=== PATIENT | female | born 1940 | race Caucasian/White ===

== ENCOUNTER 2017-03-07 10:40 | Inpatient (IN) ==
[2017-03-07] MEDS ORDERED: Sodium Chloride 0.9% 1,000 ML PRIMARY IV ONE (11:05)
[2017-03-07] MEDS ORDERED: NORMAL SALINE 10 ML SYRINGE FLUSH IVP PRN ×2 (11:05→16:05)
[2017-03-07] MEDS ORDERED: LORazepam 2 MG/1 ML VIAL IVP ONE (11:12)
[2017-03-07 11:14] LABS: BASOPHILS # (AUTO) 0.03 10*3/UL; BASOPHILS % (AUTO) 0.2 % (0-1); EOSINOPHILS # (AUTO) 0 10*3/UL; EOSINOPHILS % (AUTO) 0 % (0-8); Hematocrit [HCT] 32.9 % (37.0-47.0); Hemoglobin [HGB] 10.6 g/dL (12.0-16.0); MEAN CORPUSCULAR HEMOGLOBIN 29.4 PG (27-31); MEAN CORPUSCULAR HGB CONC 32.2 g/dL (33-37); MEAN CORPUSCULAR VOLUME 91.4 FL (81-99); MONOCYTES # (AUTO) 1.05 10*3/UL (0.3-0.8); MONOCYTES % (AUTO) 7.6 % (5-15); NEUTROPHILS # (AUTO) 12.07 10*3/UL; NEUTROPHILS % (AUTO) 87.5 % (50-80)
[2017-03-07 11:21] LABS: BLOOD UREA NITROGEN 19 mg/dL (7-22); BUN/CREATININE RATIO 31.66 (6-20); SERUM ALBUMIN 4.1 g/dL (3.5-4.8)
--- NOTE | 2017-03-07 11:33 | EKG ---
[address] [address] Measurements Intervals [place] Rate: 87 P: 63 FL: 150 QRS: 54 QRSD: 74 T: 55 QT: 342 QTc: 387 Interpretive Statements SINUS RHYTHM NONSPECIFIC T-WAVE ABNORMALITY No previous ECG available for comparison Electronically Signed On 03-08-17 12:29:50 MDT by Robbin Galeano [email or web address]
[2017-03-07 11:36] LABS: PLATELET MORPHOLOGY COMMENT NORMAL MORPHOLOGY (NORM); RBC MORPHOLOGY COMMENT NORMAL MORPHOLOGY (NORM)
[2017-03-07 11:37] LABS: WBC MORPHOLOGY COMMENT SEE COMMENTS (NORM)
[2017-03-07 11:39] LABS: VENOUS PH 7.38 (7.32-7.42)
[2017-03-07] MEDS ORDERED: MORPHINE SULFATE 2 MG/1 ML IVP ONE ×2 (11:49→15:20)
--- NOTE | 2017-03-07 11:59 | DI ---
AP PELVIS and RIGHT HIP, 03/07/2017 11:08 AM: Clinical History: Trauma. Previous Exam: None at this facility. There is no soft tissue abnormality. The bony structures of the pelvis are normal. There is osteoporo sis. 2 views of the right hip show a subcapital fracture of the hip. The visualized portions of the f emoral neck at the site of the fracture show a somewhat smooth contour of the fracture line. This is suggestive this may be a subacute fracture. Readin. Subcapital fracture of the right hip. The smooth contour of the fracture line involving the femor al neck raises the possibility this may be a subacute fracture. 2. The AP pelvis view is unremarkable. There is severe osteoporosis.
[2017-03-07 12:22] LABS: BILIRUBIN,URINE NEGATIVE (NEG); CLARITY,URINE CLEAR (CLEAR); COLOR,URINE YELLOW (Y); GLUCOSE, URINE (UA) 500 mg/dL (NEG); NITRATE,URINE NEGATIVE (NEG); OCCULT BLOOD,URINE NEGATIVE (NEG); PROTEIN,URINE NEGATIVE (NEG); URINE SAMPLE TYPE CATH SPECIMEN
--- NOTE | 2017-03-07 14:53 | PDOC ---
General Adult HPI - General Chief Complaint: Fall Stated Complaint: fall Date Seen by Provider: 03/07/17 Time Seen by Provider: 10:50 Source: POSITIVE: Patient, half-way records, Other (Patient's daughter, Sly Laureano, phone number [phone]) Exam Limitations: POSITIVE: Clinical condition (Patient has advanced Alzheimer' s with chronic confusion and markedly decreased cognitive ability) Nurse's Notes Reviewed & Considered: Yes EMS Report Reviewed & Considered: Verbal - History of Present Illness Initial Comment: The patient is a 76 year old female who is brought by ambulance from the [facility], where the patient is a resident. Patient has advanced Alzheimer's with a markedly decreased cognitive ability and increased confusion. half-way personnel called the ambulance because the patient has "been falling a lot ", especially the last few days. half-way staff found the patient sitting on the floor, complaining of pain to her right hip. Have you received a tetanus shot in the past 10 years?: Unknown Body Location Affected: REPORTS: Lower Extremity (R) (Right hip) Timing: REPORTS: With Activity (Has recently been following) Duration: Unknown (Has reportedly been falling for the last 3 weeks; fell again this morning and would not get up or bear weight on her right hip) Severity: Moderate Quality: REPORTS: "Pain" (Right hip) Context: REPORTS: Recent Trauma (As above), Fall (As above) Modifying Factors: improves with: Movement (Movement of right leg exacerbates right hip pain) Similar Symptoms Previously: No Recent Care Received: REPORTS: Denies Any Prior Injuries Related to Current Complaint?: No - Patient Home Medications Home Medications: Home Medications Haloperidol Lactate Inj [Haldol Inj] 1 mg IM PRN PRN 03/07/17 Levothyroxine Sodium 75 mcg PO DAILY 03/07/17 fentaNYL Patch 12mcg [Duragesic Patch 12mg] 12 mcg TOPICAL Q72HR 03/07/17 - Patient Allergies Allergies/Adverse Reactions: Allergies 3 Allergy/AdvReac Type Severity Reaction Status Date / Time Iodinated Contrast- Oral and Allergy NOT Verified 03/07/17 15:03 IV Dye APPLICABLE shellfish derived Allergy NOT Verified 03/07/17 15:03 APPLICABLE Past Medical History - heen HEENT History: Denies History Cardiovascular History: Denies History Respiratory History: Denies History Gastrointestinal History: Denies History Genitourinary History: Denies History Endocrine History: Hypothyroidism Musculoskeletal History: Other (please comment) Additional Musculoskeletal History: 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 Neurological History: Alzheimer's Blood Disorders: Denies History Psychiatric History: Anxiety Disorders History of Sexually Transmitted Diseases: No Female Reproductive History: Denies History Obstetrical History: Denies History Cancer History: Other (please comment) In Past Year Been Physically Harmed or Verbally Threatened: No History of MDRO: Unknown History of Other Communicable Diseases: No Tobacco Use: Unknown If Ever Smoked In the Past 12 Months, Have Used or Abuse Any Substance: Other (please comment) Previous Surgical History: No Type / Date of Surgery: UNKNOWN Significant Family History: Other (please comment) Additional Family History: UNKNOWN Past Medical History Reviewed: Reviewed - Changes Made (Review of systems obtained from long-term staff and patient's daughter; patient not able to give much past medical history due to her advanced Alzheimer's.) ROS - Limitations ROS Limitations: Clinical Condition (Advanced Alzheimer's), Mental Impairment ( Advanced Alzheimer's), Uncooperative (Advanced Alzheimer; somewhat agitated), Other (please comment) (Review of systems obtained "laterally from the long-term and the patient's daughter; patient not able to give a good review of systems due to her advanced Alzheimer's. She does indicate right hip pain.) Constitution: REPORTS: Denies Symptoms (Right hip pain) Cardiovascular: REPORTS: Denies Cardiac Symptoms Respiratory: REPORTS: Denies Resp Symptoms Neurological: REPORTS: Confusion (Chronically due to Alzheimer's) Gastrointestinal: REPORTS: Denies GI Symptoms Endocrine: REPORTS: Denies Symptoms Musculoskeletal: REPORTS: Joint Pain (Right hip pain), Recent Injury (As above) Genitourinary: REPORTS: Denies Symptoms Eyes: REPORTS: Denies Symptoms ENT: REPORTS: Denies Symptoms Skin: REPORTS: Denies Skin Symptoms Lympathic: REPORTS: Denies Lympathic Symptoms Immunologic: POSITIVE: Denies Symptoms Psychiatric: POSITIVE: Confusion (Chronically due to Alzheimer's) General Adult Exam - General Appearance General Appearance: POSITIVE: Uncooperative (Confused chronically due to Alzheimer's) - HEENT HEENT: POSITIVE: Head Inspection Nml, Eyes Inspection Nml, Ears Inspection Nml, Nose Inspection Nml, Oral/Dental Inspect. Nml, Pharynx Inspect. Nml, PERRL, EOMI - Pupils Pupil Size: 3 mm: Bilateral (PERRL) - Neck Neck: POSITIVE: Normal Inspection, Thyroid Normal - Respiratory Respiratory: POSITIVE: No Respiratory Distress, Breath Sounds Normal, Chest Non- Tender - Cardiovascular Cardiovascular: POSITIVE: Regular Rate & Rhythm, No Murmur, No Gallop, PMI Normal Peripheral Pulses: Radial (R): 2+, Radial (L): 2+, Dorsalis-pedis (R): 2+, Dorsalis-pedis (L): 2+ - Abdomen Abdomen: Soft: (All Quadrants), Normal Bowel Sounds: (All Quadrants), Denies Tenderness: (All Quadrants), No Splenomegaly: (All Quadrants), No Hepatomegaly: (All Quadrants), No Guarding: (All Quadrants), No Rebound: (All Quadrants), No Palpable Pulse: (All Quadrants), No Palpabale Mass: (All Quadrants), No Distention: (All Quadrants), No Rigidity: (All Quadrants) - Back Back: POSITIVE: Normal Inspection - Skin Skin: POSITIVE: Normal Color, Warm, Dry, No Rash - Extremities Extremity: Non-Tender: (RUE), (LUE), (LLE), Normal ROM: (RUE), (LUE), (LLE), Normal Inspection: (RUE), (LUE), (LLE), Pelvis Stable: (All Extremities), Normal Tendon Exam: (All Extremities), Tender: (RLE) Additional Extremities Details: Examination of extremities shows pain on palpation about the left hip. Patient prefers to keep her left hip in slight flexion supported by a pillow underneath her knee, which is her position of comfort. No gross deformities appreciated. No vascular deficits appreciated. 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 Normal As Tested, Motor Normal, Disoriented To Person, Disoriented To Place, Disoriented To Time, Cognition Abnormality Images - Complete Complete: 1 - Pain on palpation 2 - Pain on palpation General Adult Progress - Results Reviewed by me Xrays/CTs/US Reviewed by me: Yes Discussed with Radiologist: Yes Radiology Findings: X-ray of right hip shows a subacute subcapital fracture of the right hip CBC and BMP: 03/07/17 11:05 03/07/17 11:31 EKG Interpreted/Reviewed By Me:: Yes (normal) EKG Interpretation:: POSITIVE: Normal Sinus Rhythm, Normal Rate, Normal Intervals, Normal [place], Normal QRS, Normal ST/T - Patient's Progress Pain Medication Addressed: POSITIVE: Yes (Patient given 2 mg of morphine sulfate 4 pain IV and 1 mg Ativan for agitation IV) School/Work Release Addressed: POSITIVE: Not Applicable Re-Examine Time: 12:15 Re-Examine Comment: Patient's daughter, Ashley Mullen, and long-term staff contacted. Both states that the patient is a full CODE STATUS. Diagnosis discussed with the daughter and they wished to proceed with operative repair for fractured hip. Daughter,Ashley Mullen lives in [facility] and her phone number is [phone]. Status: POSITIVE: Unchanged, Re-Examined Antibiotics Given: No - Consult Consult (If Yes, Name of Consulting MD & Time Called): Yes (Dr. Yang, orthopedics and Dr. Aguilera, hospitalist, [facility]) Consulting MD will see pt:: POSITIVE: [facility] Admit Counseled: POSITIVE: Family, RE: Lab Results, RE: Radiology Results, RE: DX, RE : Need for F/U Patient Care Time - Estimated PCT Patient Care Time (In Minutes): 65 Vital Signs - Recent Vital Signs Vital Signs: Vital Signs (Last 8 hours) Temp Pulse Resp BP Pulse Ox 03/07/17 10:40 96.5 F L 93 20 132/86 88 - VS Reviewed Vital Signs Reviewed: Yes Discharge Clinical Impression: Hip fracture, right, Diabetes mellitus, Alzheimer disease Discharge Disposition: Admit to Inpatient Condition: Fair Date Decision to Admit to Inpatient: 03/07/17 Time Decision to Admit to Inpatient: 12:00
[2017-03-07] MEDS ORDERED: LIDOCAINE W/ SODIUM BICARB 0.5 ML SYR SUBD PRN (16:05)
[2017-03-07] MEDS ORDERED: ONDANSETRON 4 MG/2 ML VIAL IVP PRN (16:16)
--- NOTE | 2017-03-07 16:19 | PDOC ---
HPI - History of Present Illness Date and Time of Service: 03/07/2017 17 p.m. Chief Complaint: Patient fell in the intermediate. The intermediate staff found the patient sitting on the floor complaining from pain to the right hip History of Present Illness: This is a 76 years old female with medical history significant for history of advanced dementia she is a resident of the memory unit at [facility], history of hypothyroidism who apparently been falling at the intermediate and today the nursing staff found the patient sitting on the floor complaining from pain in the right hip so she was sent to the ER. Evaluation in the ER revealed Subcapital fracture of the right hip. smooth contour of the fracture line involving the femoral neck raises the possibility this may be a subacute fracture. Dr. Yang was consulted and he suggested admission to the hospital to the hospitalist service and he is planning to do surgery tomorrow. Patient was complaining from pain apparently she was agitated in the ER so she was given morphine and Ativan so by the time the patient came into the word she was sedated and no meaningful information can be obtained from her. She seems comfortable though. History is obtained from reviewing the medical records. Dr. Rosario the ER physician already informed the patient's daughter of this admission. Past Medical History Medical History: 1. Alzheimer dementia. 2. Hypertension on no medications. 3. Hypothyroidism Surgical History: Tonsillectomy Pertinent Family History: Unknown Past Social History: Review of the notes shows that she was a smoker, rarely drinks, no known drug usage. She lives at Memory support units of [facility] Tobacco Use: Never Smoker In the Past 12 Months, Have Used or Abuse Any of the Following Substance: Other (please comment) (No known drug usage) Alcohol Use: Rarely Medication / Allergies Home Medications: Home Medications Medication Instructions Recorded Confirmed Type Haloperidol Lactate Inj [Haldol 1 mg IM PRN PRN 03/07/17 03/07/17 History Inj] Levothyroxine Sodium 75 mcg PO DAILY 03/07/17 03/07/17 History fentaNYL Patch 12mcg [Duragesic 12 mcg TOPICAL Q72HR 03/07/17 03/07/17 History Patch 12mg] Allergies/Adverse Reactions: Allergies 3 Allergy/AdvReac Type Severity Reaction Status Date / Time Iodinated Contrast- Oral and Allergy NOT Verified 03/07/17 18:31 IV Dye APPLICABLE shellfish derived Allergy NOT Verified 03/07/17 18:31 APPLICABLE Review of Systems - Review of Systems ROS Unobtainable: Due to Mental Status Exam - Vitals Vital Signs: Vital Signs Temperature 96.1 F Temperature Source Temporal Artery Scan Pulse Rate 90 Respiratory Rate 16 Blood Pressure 170/92 Pulse Ox 97 Oxygen Flow Rate 2 Oxygen Delivery Method Nasal Cannula Height 4 ft 11 in Weight 96 lb 9.6 oz - General General Appearance: No Acute Distress, Thin Additional General Exam Details: sedated - Head Head Exam: Normal Inspection - Eye Eye Exam: POSITIVE: Normal Appearance - ENT ENT Exam: POSITIVE: Normal Exam - Neck Neck Exam: Normal Inspection - Respiratory Respiratory Exam: POSITIVE: Clear to Auscultation - Bilaterally - Cardiovascular Cardiovascular Exam: POSITIVE: RRR - GI/Abdominal GI/Abdominal Exam: POSITIVE: Normal Bowel Sounds, Non Tender, Non Distended, Soft - Rectal Rectal Exam: POSITIVE: Deferred - External Exam: POSITIVE: Deferred - Extremities Additional Extremities Exam Details: Patient is sedated, she withdraws in response to stimuli - Neurological Additional Neurological Exam Details: Sedated withdraw in response to stimuli moves upper limbs freely Results - Labs CBC and BMP: 03/07/17 11:05 03/07/17 11:31 - EKG Data -: EKG Interpreted by Me Rate: Normal EKG Shows Normal: Sinus Rhythm - EKG Data Additional EKG Details: None specific ST changes - Imaging Status: Report Reviewed by Me (Subcapital fracture of the right hip. The smooth contour of the fracture line involving the femoral neck raises the possibility this may be a subacute fracture.) Assessment and Plan - Patient Problems (1) Hip fracture, right Current Visit: Yes Status: Acute Comment: Patient will be put nothing by mouth after midnight. Will give her some fluid after that. Her EKG does not show significant EKG changes. I think she can proceed with surgery. Her only risk factor seems to be her age. on reviewing the medical records she does not have history of DM, no heart failure and no ischemic heart disease or CVA and creatinine is normal so I think her revised cardiac risk index risk factors put her at low rate of , non fatal IA and non fatal cardiac arrest. The chest x ray per report shows Patchy bilateral reticulonodular opacities with slightly nodular focal opacification in the lateral right mid lung. Correlate clinically. for inflammatory/ infectious process. its unclear if this is acute or chronic she had blood culture taken in ER will give a dose of rocephin and F/U clinically Code(s): S72.001A - Fracture of unspecified part of neck of right femur, initial encounter for closed fracture (2) Alzheimer disease Current Visit: Yes Status: Acute Comment: She is on Haldol IM as needed. The [facility]. Will write for when necessary in case she is agitated. Code(s): G30.9 - Alzheimer's disease, unspecified (3) Hypothyroidism Current Visit: Yes Status: Acute Comment: Continue previous medication. I don't see it previous TSH in the system will add on to the lab. Code(s): E03.9 - Hypothyroidism, unspecified (4) Hypertension Current Visit: Yes Status: Acute Comment: apparently she has a history of hypertension but she is on no medications will watch. Code(s): I10 - Essential (primary) hypertension
[2017-03-07] MEDS: MORPHINE SULFATE 2 MG/1 ML IVP PRN ×3 (16:52→22:21)
--- NOTE | 2017-03-07 18:20 | DI ---
EXAM: XR Chest, 1 View CLINICAL HISTORY: Preoperative evaluation. Physician Notes: Tech Comments: TECHNIQUE: Frontal view of the chest. COMPARISON: No relevant prior studies available. FINDINGS: Lungs: Patchy bilateral reticulonodular opacities with slightly nodular focal opacification in the lateral right mid lung. Rounded opacity measuring 17 mm in the right perihilar region. Pleural space: Unremarkable. No pneumothorax. Heart: Unremarkable. Mediastinum: Prominent mediastinal silhouette, may be related to technique or tortuous aorta. Bones/joints: Unremarkable. IMPRESSION: 1. Patchy bilateral reticulonodular opacities with slightly nodular focal opacification in the lateral right mid lung. Correlate clinically for inflammatory/infectious process. Comparison with available priors may be helpful to assess for chronicity. 2. Rounded opacity measuring 17 mm in the right perihilar region, possible lung mass or adenopathy not excluded.. 3. Prominent mediastinal silhouette, may be related to technique or tortuous aorta.
[2017-03-07] MEDS ORDERED: cefTRIAXone Inj 2 GM in Sodium Chloride 0.9% 100 ML IV ONE (18:58)
[2017-03-08] MEDS: Sodium Chloride 0.9% 1,000 ML PRIMARY IV SCH (00:08)
[2017-03-08] MEDS: MORPHINE SULFATE 2 MG/1 ML IVP PRN ×8 (01:54→22:17)
[2017-03-08] MEDS: HALOPERIDOL LACTATE 5 MG/1 ML AMPULE IVP PRN (02:49)
[2017-03-08 05:17] LABS: BASOPHILS # (AUTO) 0.01 10*3/UL; BASOPHILS % (AUTO) 0.1 % (0-1); EOSINOPHILS # (AUTO) 0.02 10*3/UL; EOSINOPHILS % (AUTO) 0.2 % (0-8); Hematocrit [HCT] 30.5 % (37.0-47.0); LYMPHOCYTES # (AUTO) 0.74 10*3/uL; MEAN CORPUSCULAR HEMOGLOBIN 29.7 PG (27-31); MEAN CORPUSCULAR HGB CONC 32.8 g/dL (33-37); MEAN CORPUSCULAR VOLUME 90.5 FL (81-99); MONOCYTES # (AUTO) 0.87 10*3/UL (0.3-0.8); MONOCYTES % (AUTO) 10.6 % (5-15); NEUTROPHILS # (AUTO) 6.56 10*3/UL; NEUTROPHILS % (AUTO) 79.9 % (50-80); RED BLOOD COUNT 3.37 10^6/uL (4.20-5.40)
[2017-03-08 05:23] LABS: BLOOD UREA NITROGEN 16 mg/dL (7-22)
[2017-03-08 05:31] LABS: PLATELET MORPHOLOGY COMMENT NORMAL MORPHOLOGY (NORM); RBC MORPHOLOGY COMMENT NORMAL MORPHOLOGY (NORM); WBC MORPHOLOGY COMMENT NORMAL MORPHOLOGY (NORM)
[2017-03-08] MEDS: LEVOTHYROXINE 75 MCG TABLET PO SCH (05:31)
[2017-03-08] MEDS ORDERED: Lactated Ringers 1,000 ML PRIMARY IV ONE (05:49)
[2017-03-08] MEDS ORDERED: LIDOCAINE W/ SODIUM BICARB 0.5 ML SYR ONE (07:09)
[2017-03-08] MEDS ORDERED: HETASTARCH 6% IV ONE (07:12)
[2017-03-08] MEDS ORDERED: MIDAZOLAM 5 MG/1 ML ONE (07:12)
[2017-03-08] MEDS ORDERED: KETAMINE 100 MG/1 ML - 5 ML ONE (07:12)
[2017-03-08] MEDS ORDERED: fentaNYL Inj 100 MCG/2 ML VIAL ONE (07:12)
[2017-03-08] MEDS ORDERED: SODIUM CHLORIDE IV ONE (07:12)
[2017-03-08] MEDS ORDERED: Sodium Chloride 0.9% 2,000 ML ONE (07:13)
[2017-03-08] MEDS ORDERED: Sodium Chloride 0.9% 500 ML ONE (07:13)
[2017-03-08] MEDS ORDERED: Gentamicin Inj 40 MG/ML VIAL ONE (07:26)
[2017-03-08] MEDS ORDERED: HEPARIN 10,000 UNIT/1 ML IRRIG ONE ×2 (07:27→13:16)
[2017-03-08] MEDS ORDERED: HEPARIN 10,000 UNIT/1 ML ONE (07:27)
[2017-03-08 07:31] LABS: HEMOGLOBIN A1C 5.86 % (4.2-6.0)
[2017-03-08] MEDS ORDERED: Sodium Chloride 0.9% vial 10 ML ONE ×2 (07:36→07:39)
[2017-03-08] MEDS ORDERED: VECURONIUM BROMIDE 10 MG VIAL ONE (07:36)
[2017-03-08] MEDS ORDERED: PHENYLEPHRINE 10,000 MCG/1 ML VIAL ONE (07:38)
[2017-03-08] MEDS ORDERED: Propofol 200 MG/20 ML VIAL IV ONE (07:43)
[2017-03-08] MEDS ORDERED: FLUMAZENIL 0.1 MG/1 ML - 5 ML IVP ONE (08:35)
--- NOTE | 2017-03-08 09:04 | CRNA.PROGR ---
Anesthesia Note - Progress Notes Anesthesia Progress Note: Scheduled to do Bipolar hip this am. Orthopod, after further review, canceled case due to possibility we would not have correct parts. I gave Fentanyl 50 mcgs and Versed 2 mg as preoperative meds. Gave 0.5 mg Romazicon at 0836 to reverse Versed. Back to floor. Tentatively rescheduled for 03/09/17.
--- NOTE | 2017-03-08 09:24 | PDOC(PROG) ---
Date and Time of Service: 03/08/2017 9:16 AM Interval History: Subjective Patient was supposed to have surgery today she went down however the surgery was canceled because the parts may not be correct for her. Patient downstairs was given fentanyl and also Versed and then was given medication to reverse the effect of Versed. By the time patient came into the floor she is still sleepy she did not answer my questions. Does not appear in distress. Objective : Data - Labs CBC and BMP: 03/08/17 04:20 03/08/17 04:20 Objective : Exam - General Additional General Exam Details: Sedated - Head Head Exam: Normal Inspection - Eye Eye Exam: Normal Appearance - ENT ENT Exam: Normal Exam - Neck Neck Exam: Normal Inspection - Respiratory Respiratory Exam: Clear to Auscultation - Bilaterally - Cardiovascular Cardiovascular Exam: RRR - GI/Abdominal GI/Abdominal Exam: Normal Bowel Sounds, Non Tender, Non Distended, Soft - Rectal Rectal Exam: Deferred - External Exam: Deferred - Extremities Extremities Exam: No Edema Present Additional Extremities Exam Details: Pulses symmetrical and adequate - Neurological Additional Neurological Exam Details: Sedated as a result of the medications - Integumentary Integumentary Exam: Normal Color Assessment and Plan - Patient Problems (1) Hip fracture, right Current Visit: Yes Status: Acute Comment: The surgery was canceled through it is rescheduled for tomorrow. Code(s): S72.001A - Fracture of unspecified part of neck of right femur, initial encounter for closed fracture (2) Alzheimer disease Current Visit: Yes Status: Acute Comment: We did write for Haldol as needed for agitations. Code(s): G30.9 - Alzheimer's disease, unspecified (3) Hypothyroidism Current Visit: Yes Status: Acute Comment: Same med Code(s): E03.9 - Hypothyroidism, unspecified (4) Hypertension Current Visit: Yes Status: Acute Comment: She has a history of hypertension but she is not on blood pressure medication continue to watch her blood pressure Code(s): I10 - Essential (primary) hypertension (5) Hyperglycemia Current Visit: Yes Status: Acute Comment: A1c was 5.8, I think the elevated blood sugar when she came is in part secondary to stress. Maybe she is prediabetic Code(s): R73.9 - Hyperglycemia, unspecified (6) Lung abnormality Current Visit: Yes Status: Acute Comment: There is description on the chest x-ray of possible hilar mass will do a CT. Regarding the fibronodular infiltrate this may be chronic. I think will do a CT of her chest to look into this. Blood cultures still negative I did give her a dose of Rocephin last night we'll see what the CT shows and then will decide if need to give her another dose of antibiotics. Code(s): J98.4 - Other disorders of lung
--- NOTE | 2017-03-08 11:04 | DI ---
CT CHEST SCAN WITHOUT IV CONTRAST, 03/08/2017 9:43 AM : Clinical History: Abnormal chest x-ray. Right hilar mass. Previous Exam: None at this facility. Comparison is made with the AP portable chest x-ray from 017. Scans are performed from the base of the neck to the lower lung bases without IV contrast. Sagittal a nd coronal images using non MIPS and MIPS technique are generated. The base of the neck and thoracic inlet are normal. There are no abnormal axillary, supraclavicular, mediastinal, or hilar nodes. The heart is normal. Significant coronary artery calcifications are pres ent. There is no acute infiltrate, but there is some atelectasis posteriorly. Chronic interstitial di sease is present in both lungs manifested by Shawna A and Shawna B lines. There are no pulmonary nodu les. There is pulmonary arterial hypertension. The "mass" seen in the right hilar region on the AP ch est x-ray from 03/07/2017 is the right pulmonary artery segment going to the right lower lobe before i t bifurcates into branches to the superior segment and the basal segments, and it is prominent becaus e of the pulmonary arterial hypertension. Both adrenal glands and the visualized portions of the live r, spleen, and pancreas are normal. READIN. There is no acute infiltrate or effusion. There is evidence of chronic interstitial lung disease bilaterally. 2. There is no right hilar mass. The density seen on the portable chest x-ray from 03/07/2017 represe nts a prominent pulmonary artery segment going to the right lower lobe. On the chest x-ray, that vess el is viewed end on simulating a mass. 3. Pulmonary arterial hypertension.
--- NOTE | 2017-03-08 11:52 | ORTHO.PROG ---
Last Taken Vital Signs: Vital Signs - Last Taken Temperature 97.1 F 03/08/17 09:00 Pulse Rate 92 03/08/17 09:00 Respiratory Rate 14 03/08/17 09:00 Blood Pressure 139/72 03/08/17 09:00 Pulse Ox 92 03/08/17 09:00 Subjective: Patient complains of pain in her right hip. Objective: Skin is healthy around right hip. Motor and sensory exam seems to be intact but pain with any motion of the hip shortened and externally rotated. CT scan measured the head on the left hip to be approximately 39 mm on the axial and on the sagittal about 38-1/2. Radiograph of the hip measured about 39.3 mm Laboratory Results 03/07/17 03/07/17 03/08/17 Range/Units 12:14 17:24 04:20 WBC 8.22 (4.8-10.8) 10^3/uL RBC 3.37 L (4.20-5.40) 10^6/uL Hgb 10.0 L (12.0-16.0) g/dL Hct 30.5 L (37.0-47.0) % MCV 90.5 (81-99) FL MCH 29.7 (27-31) PG MCHC 32.8 L (33-37) g/dL RDW Std Deviation 46.9 (39-50) fL RDW Coeff of [place] 14.7 H (11.5-14.5) % Plt Count 330 (140-350) 10*3/uL MPV 9.0 (7.4-12.2) FL Immature Gran % (Auto) 0.2 (0-5) % Neut % (Auto) 79.9 (50-80) % Lymph % (Auto) 9.0 L (10-50) % [place] % (Auto) 10.6 (5-15) % Eos % (Auto) 0.2 (0-8) % Baso % (Auto) 0.1 (0-1) % Immature Gran # (Auto) 0.02 10*3/UL Neut # (Auto) 6.56 10*3/UL Lymph # (Auto) 0.74 10*3/uL [place] # (Auto) 0.87 H (0.3-0.8) 10*3/UL Eos # (Auto) 0.02 10*3/UL Baso # (Auto) 0.01 10*3/UL WBC Morphology Comment Normal morphology (NORM) Plt Morphology Comment Normal morphology (NORM) RBC Morph Comment Normal morphology (NORM) Sodium (135-145) meq/L Potassium (3.8-5.2) meq/L Chloride (98-112) meq/L Carbon Dioxide (23-33) meq/L Anion Gap (5-20) BUN (7-22) mg/dL Creatinine (0.50-1.20) mg/dL BUN/Creatinine Ratio (6-20) Glucose (78-110) mg/dL Mean Blood Glucose mg/dL Hemoglobin A1c (4.2-6.0) % Calculated Osmolality (267-292) mOsm/kg Calcium (8.7-10.7) mg/dL TSH 8.44 H (0.2700-4.2000) uIU/mL Free T4 1.31 (0.93-1.71) ng/dL Ur Collection Type Cath specimen Urine Color Yellow (Y) Urine Clarity Clear (CLEAR) Urine pH 7.0 (5.0-8.5) Ur Specific [place] 1.020 (1.005-1.030) Urine Protein Negative (NEG) mg/dl Urine Glucose (UA) 500 (NEG) mg/dL Urine Ketones Negative (NEG) Urine Occult Blood Negative (NEG) Urine Nitrate Negative (NEG) Urine Bilirubin Negative (NEG) Urine Urobilinogen 1.0 (0.2) EU/dL Ur Leukocyte Esterase Negative (NEG) Ur Culture Indicated? Culture not set Blood Type Antibody Screen 03/08/17 03/08/17 03/08/17 Range/Units 04:20 04:20 07:15 WBC (4.8-10.8) 10^3/uL RBC (4.20-5.40) 10^6/uL Hgb (12.0-16.0) g/dL Hct (37.0-47.0) % MCV (81-99) FL MCH (27-31) PG MCHC (33-37) g/dL RDW Std Deviation (39-50) fL RDW Coeff of [place] (11.5-14.5) % Plt Count (140-350) 10*3/uL MPV (7.4-12.2) FL Immature Gran % (Auto) (0-5) % Neut % (Auto) (50-80) % Lymph % (Auto) (10-50) % [place] % (Auto) (5-15) % Eos % (Auto) (0-8) % Baso % (Auto) (0-1) % Immature Gran # (Auto) 10*3/UL Neut # (Auto) 10*3/UL Lymph # (Auto) 10*3/uL [place] # (Auto) (0.3-0.8) 10*3/UL Eos # (Auto) 10*3/UL Baso # (Auto) 10*3/UL WBC Morphology Comment (NORM) Plt Morphology Comment (NORM) RBC Morph Comment (NORM) Sodium 139 (135-145) meq/L Potassium 3.9 (3.8-5.2) meq/L Chloride 102 (98-112) meq/L Carbon Dioxide 27 (23-33) meq/L Anion Gap 10 (5-20) BUN 16 (7-22) mg/dL Creatinine 0.5 (0.50-1.20) mg/dL BUN/Creatinine Ratio 32.00 H (6-20) Glucose 144 H (78-110) mg/dL Mean Blood Glucose 109.138 mg/dL Hemoglobin A1c 5.86 (4.2-6.0) % Calculated Osmolality 291.0 (267-292) mOsm/kg Calcium 9.1 (8.7-10.7) mg/dL TSH (0.2700-4.2000) uIU/mL Free T4 (0.93-1.71) ng/dL Ur Collection Type Urine Color (Y) Urine Clarity (CLEAR) Urine pH (5.0-8.5) Ur Specific [place] (1.005-1.030) Urine Protein (NEG) mg/dl Urine Glucose (UA) (NEG) mg/dL Urine Ketones (NEG) Urine Occult Blood (NEG) Urine Nitrate (NEG) Urine Bilirubin (NEG) Urine Urobilinogen (0.2) EU/dL Ur Leukocyte Esterase (NEG) Ur Culture Indicated? Blood Type A POSITIVE Antibody Screen Negative Assessment: Alzheimer's disease Right hip fracture Chronic anemia by history Plan: Patient was brought down for potential surgery this morning however x-rays obtained in order to template showed that the smallest bipolar head may not be small enough for her acetabulum. In light of this we elected to postpone the case until we had smaller bipolar head in order to fit her acetabulum potentially and or proceed with total hip replacement in order to obviate need for smaller bipolar head if the smallest was too small. We did template femoral stem and generally felt we will well within safe limits before placement of the femoral stem. We will tentatively postpone this until noon tomorrow. Discussed the case in situation with her son who agrees with the plan. Greater than 60 minutes was spent coordinating patient care with family representatives and landen
--- NOTE | 2017-03-08 11:58 | CONSULT ---
Consult Note - Consult Consult Date: 03/07/17 Reason for Consult: PreOp Consulation : Ortho Requesting Physician: Dr. Rosario Primary Care Provider: NONE NONE - History of Present Illness History of Present Illness: Patient is a 76-year-old female with significant Alzheimer's disease who apparently had sustained 3 falls yesterday and was found down on the floor unable to get up or mobilize. Patient is normal status is frequent ambulation throughout the day with no demonstrable issues of pain and discomfort apparently. Past Medical History Medical History: 1. Alzheimer dementia. 2. Hypertension on no medications. 3. Hypothyroidism Surgical History: Tonsillectomy Pertinent Family History: Unknown Past Social History: Review of the notes shows that she was a smoker, rarely drinks, no known drug usage. She lives at [facility] support units of [facility] Tobacco Use: Never Smoker In the Past 12 Months, Have Used or Abuse Any of the Following Substance: Other (please comment) (No known drug usage) Alcohol Use: Rarely Medication / Allergies Home Medications: Home Medications Medication Instructions Recorded Confirmed Type Haloperidol Lactate Inj [Haldol 1 mg IM PRN PRN 03/07/17 03/07/17 History Inj] Levothyroxine Sodium 75 mcg PO DAILY 03/07/17 03/07/17 History fentaNYL Patch 12mcg [Duragesic 12 mcg TOPICAL Q72HR 03/07/17 03/07/17 History Patch 12mg] Allergies/Adverse Reactions: Allergies 3 Allergy/AdvReac Type Severity Reaction Status Date / Time Iodinated Contrast- Oral and Allergy NOT Verified 03/07/17 18:31 IV Dye APPLICABLE shellfish derived Allergy NOT Verified 03/07/17 18:31 APPLICABLE Exam - - Exam: Examination shows that the patient generally appears to be relatively healthy in the sense of no marked atrophy to her lower extremities a muscle she does have shortening and external rotation of the right femur she does move the toes with stimulation as well as the ankle she has good motion of the left lower extremities and the upper extremities. Patient does not very conversant does not appear to be oriented to time place or situation. She does complain of pain with a motion of the leg. Generally she appears to have good pulses and brisk refill. Radiographs show a right femoral neck fracture of the some smoothing of the neck of the femur consistent with possibly subacute nature as well as changes to the head. Laboratory Results 09/03/07/17 03/08/17 Range/Units 12:14 17:24 04:20 WBC 8.22 (4.8-10.8) 10^3/uL RBC 3.37 L (4.20-5.40) 10^6/uL Hgb 10.0 L (12.0-16.0) g/dL Hct 30.5 L (37.0-47.0) % MCV 90.5 (81-99) FL MCH 29.7 (27-31) PG MCHC 32.8 L (33-37) g/dL RDW Std Deviation 46.9 (39-50) fL RDW Coeff of Carl[place] 14.7 H (11.5-14.5) % Plt Count 330 (140-350) 10*3/uL MPV 9.0 (7.4-12.2) FL Immature Gran % (Auto) 0.2 (0-5) % Neut % (Auto) 79.9 (50-80) % Lymph % (Auto) 9.0 L (10-50) % [place] % (Auto) 10.6 (5-15) % Eos % (Auto) 0.2 (0-8) % Baso % (Auto) 0.1 (0-1) % Immature Gran # (Auto) 0.02 10*3/UL Neut # (Auto) 6.56 10*3/UL Lymph # (Auto) 0.74 10*3/uL [place] # (Auto) 0.87 H (0.3-0.8) 10*3/UL Eos # (Auto) 0.02 10*3/UL Baso # (Auto) 0.01 10*3/UL WBC Morphology Comment Normal morphology (NORM) Plt Morphology Comment Normal morphology (NORM) RBC Morph Comment Normal morphology (NORM) Sodium (135-145) meq/L Potassium (3.8-5.2) meq/L Chloride (98-112) meq/L Carbon Dioxide (23-33) meq/L Anion Gap (5-20) BUN (7-22) mg/dL Creatinine (0.50-1.20) mg/dL BUN/Creatinine Ratio (6-20) Glucose (78-110) mg/dL Mean Blood Glucose mg/dL Hemoglobin A1c (4.2-6.0) % Calculated Osmolality (267-292) mOsm/kg Calcium (8.7-10.7) mg/dL TSH 8.44 H (0.2700-4.2000) uIU/mL Free T4 1.31 (0.93-1.71) ng/dL Ur Collection Type Cath specimen Urine Color Yellow (Y) Urine Clarity Clear (CLEAR) Urine pH 7.0 (5.0-8.5) Ur Specific [place] 1.020 (1.005-1.030) Urine Protein Negative (NEG) mg/dl Urine Glucose (UA) 500 (NEG) mg/dL Urine Ketones Negative (NEG) Urine Occult Blood Negative (NEG) Urine Nitrate Negative (NEG) Urine Bilirubin Negative (NEG) Urine Urobilinogen 1.0 (0.2) EU/dL Ur Leukocyte Esterase Negative (NEG) Ur Culture Indicated? Culture not set Blood Type Antibody Screen 03/08/17 03/08/17 03/08/17 Range/Units 04:20 04:20 07:15 WBC (4.8-10.8) 10^3/uL RBC (4.20-5.40) 10^6/uL Hgb (12.0-16.0) g/dL Hct (37.0-47.0) % MCV (81-99) FL MCH (27-31) PG MCHC (33-37) g/dL RDW Std Deviation (39-50) fL RDW Coeff of Carlota (11.5-14.5) % Plt Count (140-350) 10*3/uL MPV (7.4-12.2) FL Immature Gran % (Auto) (0-5) % Neut % (Auto) (50-80) % Lymph % (Auto) (10-50) % [place] % (Auto) (5-15) % Eos % (Auto) (0-8) % Baso % (Auto) (0-1) % Immature Gran # (Auto) 10*3/UL Neut # (Auto) 10*3/UL Lymph # (Auto) 10*3/uL [place] # (Auto) (0.3-0.8) 10*3/UL Eos # (Auto) 10*3/UL Baso # (Auto) 10*3/UL WBC Morphology Comment (NORM) Plt Morphology Comment (NORM) RBC Morph Comment (NORM) Sodium 139 (135-145) meq/L Potassium 3.9 (3.8-5.2) meq/L Chloride 102 (98-112) meq/L Carbon Dioxide 27 (23-33) meq/L Anion Gap 10 (5-20) BUN 16 (7-22) mg/dL Creatinine 0.5 (0.50-1.20) mg/dL BUN/Creatinine Ratio 32.00 H (6-20) Glucose 144 H (78-110) mg/dL Mean Blood Glucose 109.138 mg/dL Hemoglobin A1c 5.86 (4.2-6.0) % Calculated Osmolality 291.0 (267-292) mOsm/kg Calcium 9.1 (8.7-10.7) mg/dL TSH (0.2700-4.2000) uIU/mL Free T4 (0.93-1.71) ng/dL Ur Collection Type Urine Color (Y) Urine Clarity (CLEAR) Urine pH (5.0-8.5) Ur Specific [place] (1.005-1.030) Urine Protein (NEG) mg/dl Urine Glucose (UA) (NEG) mg/dL Urine Ketones (NEG) Urine Occult Blood (NEG) Urine Nitrate (NEG) Urine Bilirubin (NEG) Urine Urobilinogen (0.2) EU/dL Ur Leukocyte Esterase (NEG) Ur Culture Indicated? Blood Type A POSITIVE Antibody Screen Negative Vital Signs (Last 8 hours) Temp Pulse Resp BP Pulse Ox 03/08/17 09:00 97.1 F 92 14 139/72 92 03/08/17 06:57 97 03/08/17 04:47 98.0 F 98 20 147/72 93 - Vitals Vital Signs: Vital Signs Temperature 97.1 F Temperature Source Temporal Artery Scan Pulse Rate [Pulse Oximeter 92 Left] Pulse Rate 80 Respiratory Rate 14 Blood Pressure [Right Arm] 139/72 Blood Pressure 170/92 Pulse Ox 92 Oxygen Flow Rate 9 Oxygen Delivery Method Mask-Simple Height 4 ft 11 in Weight 44.906 kg Results - Labs CBC and BMP: 03/08/17 04:20 03/08/17 04:20 Assessment and Plan - Assessment / Plan Additional Assessment/Plan Details: Impression: Patient with right hip fracture displaced. Alzheimer's. Chronic anemia Plan: We'll proceed with bipolar fixation for right hip fracture to allow early mobilization and without limitations on weightbearing status. Have discussed the case with the patient's son and daughter who agree with the plan and we will proceed along these lines at the current time. Patient son is power of civil attorney. We will proceed with templated x-rays prior to surgery We discussed the patient's current condition and clinical findings as it pertains to the current situation. Surgical versus nonsurgical options risks and benefits were discussed and reviewed. Options moving forward include but are not limited to continued choice to live with their current condition; evaluate their current condition further with imaging studies and/or diagnostic testing, etc.; treat problem/problems with surgical versus nonsurgical methods. The patient demonstrates a clear understanding of our discussion. All questions were answered. Surgical versus nonsurgical options risks and benefits were discussed and reviewed. The risks include but are not limited to bleeding, infection, neurovascular damage, wound problems, deep vein thromboses, pulmonary embolism, fracture, dislocation, nonunion/malunion, need for further surgery, need for blood transfusion, and loss of life and limb. Certainly any surgical procedure may not improve symptoms and potentially could makes symptoms worse. There are no guarantees implied with the discussion of surgical treatment. All questions are answered and the patient wishes to proceed with surgical treatment.
[2017-03-09] MEDS: HALOPERIDOL LACTATE 5 MG/1 ML AMPULE IVP PRN ×2 (00:36→08:49)
[2017-03-09] MEDS: MORPHINE SULFATE 2 MG/1 ML IVP PRN ×6 (01:25→22:22)
[2017-03-09] MEDS: LEVOTHYROXINE 75 MCG TABLET PO SCH (04:39)
--- NOTE | 2017-03-09 07:43 | PDOC(PROG) ---
Date and Time of Service: 03/09/2017 7:40 AM Interval History: Subjective Patient is resting. She did respond when I ask about her pain she denied pain. She did not answer other questions. She seems to be comfortable Objective : Data - Labs CBC and BMP: 03/08/17 04:20 03/08/17 04:20 Objective : Exam - General General Appearance: No Acute Distress - Head Head Exam: Normal Inspection - Eye Eye Exam: Normal Appearance - Neck Neck Exam: Normal Inspection - Respiratory Respiratory Exam: Clear to Auscultation - Bilaterally - Cardiovascular Cardiovascular Exam: RRR - GI/Abdominal GI/Abdominal Exam: Normal Bowel Sounds, Non Tender, Non Distended, Soft - Rectal Rectal Exam: Deferred - External Exam: Deferred - Extremities Extremities Exam: No Edema Present Additional Extremities Exam Details: Adequate pulses present - Neurological Additional Neurological Exam Details: Sleeping but arousable. - Integumentary Integumentary Exam: Normal Color Assessment and Plan - Patient Problems (1) Hip fracture, right Current Visit: Yes Status: Acute Comment: Patient will have surgery today. Code(s): S72.001A - Fracture of unspecified part of neck of right femur, initial encounter for closed fracture (2) Alzheimer disease Current Visit: Yes Status: Acute Comment: We wrote for Haldol as needed for agitation Code(s): G30.9 - Alzheimer's disease, unspecified (3) Hypothyroidism Current Visit: Yes Status: Acute Comment: Same medications Code(s): E03.9 - Hypothyroidism, unspecified (4) Hypertension Current Visit: Yes Status: Acute Comment: Continue watching her blood pressure Code(s): I10 - Essential (primary) hypertension (5) Hyperglycemia Current Visit: Yes Status: Acute Comment: Looks like prediabetic. The elevated blood sugar that she had initially probably related to stress. Code(s): R73.9 - Hyperglycemia, unspecified (6) Lung abnormality Current Visit: Yes Status: Acute Comment: CT of the chest that she had showed no evidence of mass and showed chronic interstitial changes. we DC'd antibiotics. Code(s): J98.4 - Other disorders of lung (7) Anemia Current Visit: Yes Status: Acute Comment: Probable anemia of chronic disease Code(s): D64.9 - Anemia, unspecified
[2017-03-09] MEDS ORDERED: Lactated Ringers 1,000 ML PRIMARY IV SCH ×2 (08:00→11:00)
[2017-03-09] MEDS: Sodium Chloride 0.9% 1,000 ML PRIMARY IV SCH ×2 (09:47→23:00)
--- NOTE | 2017-03-09 10:18 | DI ---
CT HIP SCAN WITHOUT IV CONTRAST, 03/08/2017 9:19 AM : Clinical History: Right hip fracture. Measurement of the femoral head to calculate the prosthetic fem oral head size. The patient is quite diminutive in size and the measurement is required in order to s pecial order the correct size prosthesis. Previous Exam: None at this facility. Scans are performed from above the acetabulum to the proximal femurs without IV contrast. Sagittal an d coronal images are generated. Scans through the lower pelvis show no masses or abnormal fluid collections. There is no adenopathy. The uterus is atrophic but normal. The patient is developing a fecal impaction. The left hip is normal and the measurement of the diameter of the femoral head in 2 planes is between 38-39 mm. The right hip fracture shows multiple small bone shards at the fracture site with erosive change of t he lateral aspect of the femoral head secondary to the medial margin of the fractured femoral neck. T here is sclerosis at the fracture margins indicating this is a subacute to chronic fracture. The pres ence of sclerosis would suggest a duration of at least several weeks has transpired since the initial fracture had occurred. This probably was a subcapital hip fracture. There is osteoporosis. READIN. The right hip fracture is subacute, probably several weeks old. The presence of osteoporosis and the hip fracture indicates this patient has severe osteoporosis. 2. The left hip is normal. Measurement of the left femoral head diameter these measurements between 38-39 mm.
--- NOTE | 2017-03-09 10:27 | CD ---
[facility] Interpretive Statements [id number]
[2017-03-09] MEDS ORDERED: HEPARIN 10,000 UNIT/1 ML ONE (13:16)
[2017-03-09] MEDS ORDERED: Gentamicin Inj 40 MG/ML VIAL ONE (13:16)
[2017-03-09] MEDS ORDERED: Propofol 200 MG/20 ML VIAL IV ONE (13:46)
[2017-03-09] MEDS ORDERED: fentaNYL Inj 250 MCG/5 ML VIAL ONE (13:46)
[2017-03-09] MEDS ORDERED: LIDOCAINE MPF 2% - 5 ML (20 MG/1 ML) ONE (13:46)
[2017-03-09] MEDS ORDERED: Sodium Chloride 0.9% vial 10 ML ONE ×2 (13:48→15:44)
[2017-03-09] MEDS ORDERED: BUPivacaine Liposome/PF (Exparel) Inj 20ml vial INFIL ONE (13:48)
[2017-03-09] MEDS ORDERED: Bacteriostatic NaCl Inj 30ml Vial ONE (13:49)
[2017-03-09] MEDS ORDERED: Ketorolac Inj 30 MG, Morphine Inj 5 MG, BUPivacaine Inj 0.25% PF 150 MG SPLASH ONE ×3 (14:06)
[2017-03-09] MEDS ORDERED: ceFAZolin Inj 2gm (Premix) 2 GM/50 ML BAG IV ONE (14:09)
[2017-03-09] MEDS ORDERED: KETAMINE 100 MG/1 ML - 5 ML ONE (14:15)
[2017-03-09] MEDS ORDERED: ePHEDrine Inj 50 MG/ML AMP ONE (14:31)
[2017-03-09] MEDS ORDERED: HYDROmorphone 2 MG/1 ML ONE (15:23)
[2017-03-09] MEDS ORDERED: Sodium Chloride 0.9% 500 ML ONE (15:27)
[2017-03-09] MEDS ORDERED: Sodium Chloride 0.9% 3,000 ML ONE (16:14)
[2017-03-09] MEDS ORDERED: Lactated Ringers 1,000 ML PRIMARY IV ONE (16:33)
[2017-03-09] MEDS ORDERED: NORMAL SALINE 10 ML SYRINGE FLUSH IVP PRN ×3 (17:22→19:14)
[2017-03-09] MEDS ORDERED: HYDROmorphone 2 MG/1 ML IVP PRN (17:22)
--- NOTE | 2017-03-09 17:34 | CRNA.PROGR ---
Anesthesia Time - - Start date: 03/09/17 End date: 03/09/17 - Procedure/Recovery Time Anesthesia : Time In: 14:19 Anesthesia : Time Out: 17:18 Anesthesia : Total Time: 179 - Total Anesthesia Time Total Anesthesia Time (minutes): 179 - Other Weight: 44.906 kg Height: 4 ft 11 in Body Mass Index (BMI): 20.0 Physical Status: P3 Anesthesia Type: General Anesthesia : LMA
--- NOTE | 2017-03-09 17:53 | CD ---
[facility] Interpretive Statements [id number]
[2017-03-09] MEDS ORDERED: Nalbuphine Inj 20 MG/ML Ampule ONE (17:55)
[2017-03-09] MEDS: Nalbuphine Inj 20 MG/ML Ampule IVP PRN ×2 (17:55→18:05)
--- NOTE | 2017-03-09 18:02 | DI ---
AP PELVIS AND RIGHT HIP, 03/09/2017 4:44 PM: Clinical History: Status post right hemiarthroplasty. Right hip fracture. Previous Exam: 03/07/2017. An AP pelvis with AP and lateral views of the replaced hip are submitted. The patient is status post right hemiarthroplasty. The prosthetic joint articulates normally. A drain tube is in place. There ma y be a fecal impaction. Readin. Status post right hemiarthroplasty. The prosthetic joint articulates normally. 2. There may be a fecal impaction.
[2017-03-09] MEDS ORDERED: diphenhydrAMINE 25 MG CAPSULE PO PRN (19:14)
[2017-03-09] MEDS ORDERED: Prochlorperazine Tab 10 MG TAB PO PRN (19:14)
[2017-03-09] MEDS ORDERED: MAG HYDROX/AL HYDROX/SIMETH 30 ML SUSP PO PRN (19:14)
[2017-03-09] MEDS ORDERED: CALCIUM CARBONATE 500 MG (TUMS) CHEWABLE TABLET PO PRN (19:14)
[2017-03-09] MEDS ORDERED: Ondansetron ODT Tab 8 MG TAB PO PRN (19:14)
[2017-03-09] MEDS ORDERED: BISACODYL 10 MG SUPPOSITORY RECTAL PRN (19:14)
[2017-03-09] MEDS ORDERED: ONDANSETRON 4 MG/2 ML VIAL IVP PRN (19:14)
[2017-03-09] MEDS ORDERED: BISACODYL 5 MG TABLET PO PRN (19:14)
[2017-03-09] MEDS ORDERED: ACETAMINOPHEN 325 MG TABLET PO PRN (19:14)
[2017-03-09] MEDS ORDERED: ceFAZolin Inj 2gm (Premix) 2 GM/50 ML BAG IV SCH (20:00)
[2017-03-09] MEDS: Lactated Ringers 1,000 ML PRIMARY IV SCH (23:00)
[2017-03-09] MEDS: DOCUSATE 100 MG CAPSULE PO SCH (23:01)
[2017-03-09] MEDS: ceFAZolin Inj 2gm (Premix) 2 GM/50 ML BAG IV SCH (23:18)
[2017-03-10 05:38] LABS: Hematocrit [HCT] 30.2 % (37.0-47.0); Hemoglobin [HGB] 9.9 g/dL (12.0-16.0); MEAN CORPUSCULAR HEMOGLOBIN 28.6 PG (27-31); MEAN CORPUSCULAR HGB CONC 32.8 g/dL (33-37); MEAN CORPUSCULAR VOLUME 87.3 FL (81-99); MEAN PLATELET VOLUME 9.2 FL (7.4-12.2); RED BLOOD COUNT 3.46 10^6/uL (4.20-5.40)
[2017-03-10 05:49] LABS: BLOOD UREA NITROGEN 12 mg/dL (7-22)
[2017-03-10] MEDS: Sodium Chloride 0.9% 1,000 ML PRIMARY IV SCH ×2 (06:10→17:39)
[2017-03-10] MEDS: Lactated Ringers 1,000 ML PRIMARY IV SCH (06:11)
[2017-03-10] MEDS: LEVOTHYROXINE 75 MCG TABLET PO SCH (07:00)
[2017-03-10] MEDS: ceFAZolin Inj 2gm (Premix) 2 GM/50 ML BAG IV SCH (07:14)
[2017-03-10] MEDS: MORPHINE SULFATE 2 MG/1 ML IVP PRN (07:16)
[2017-03-10] MEDS: DOCUSATE 100 MG CAPSULE PO SCH ×2 (09:15→20:42)
[2017-03-10] MEDS: ASPIRIN 325 MG EC TABLET PO SCH ×2 (09:15→20:42)
[2017-03-10] MEDS: HYDROcodone-APAP 5 MG -325 MG TABLET PO PRN ×3 (09:43→17:42)
--- NOTE | 2017-03-10 10:16 | PDOC(PROG) ---
Interval History: No complaints patient has severe dementia which is her baseline at the residential she is grimacing the nurse did give her some pain medication she is unable to articulate anything and this is her baseline as well because of the dementia Objective : Data - Labs CBC and BMP: 03/10/17 04:38 03/10/17 04:38 Objective : Exam - General General Appearance: Cooperative - Respiratory Respiratory Exam: Clear to Auscultation - Bilaterally, Breathing Non Labored - Cardiovascular Cardiovascular Exam: RRR, No Murmur, No Clicks - Extremities Extremities Exam: No Clubbing Present, No Edema Present Assessment and Plan - Patient Problems (1) Alzheimer disease Current Visit: Yes Status: Chronic Code(s): G30.9 - Alzheimer's disease, unspecified (2) Hip fracture, right Current Visit: Yes Status: Acute Comment: Status post surgery continue rehabilitation as per orthopedic surgeon as well as anticoagulation Code(s): S72.001A - Fracture of unspecified part of neck of right femur, initial encounter for closed fracture (3) Hypertension Current Visit: Yes Status: Acute Code(s): I10 - Essential (primary) hypertension
--- NOTE | 2017-03-10 16:41 | ORTHO.PROG ---
Last Taken Vital Signs: Vital Signs - Last Taken Temperature 98.8 F 03/10/17 13:00 Pulse Rate 98 03/10/17 13:00 Respiratory Rate 20 03/10/17 13:00 Blood Pressure 149/75 03/10/17 13:00 Pulse Ox 95 03/10/17 13:00 Subjective: Patient seems to be doing well states she has no pain Objective: Dressings are clean and dry, the drain has very little output maybe 10 mL since last PM this was removed patient sits with both legs internally rotated however can rotate externally to about 20 30 with no problems. Her motor exam generally appears to be intact as well as good pulses brisk refill Laboratory Results 03/10/17 03/10/17 Range/Units 04:38 04:38 WBC 7.17 (4.8-10.8) 10^3/uL RBC 3.46 L (4.20-5.40) 10^6/uL Hgb 9.9 L (12.0-16.0) g/dL Hct 30.2 L (37.0-47.0) % MCV 87.3 (81-99) FL MCH 28.6 (27-31) PG MCHC 32.8 L (33-37) g/dL RDW Std Deviation 52.3 H (39-50) fL RDW Coeff of [place] 16.9 H (11.5-14.5) % Plt Count 249 (140-350) 10*3/uL MPV 9.2 (7.4-12.2) FL Sodium 138 (135-145) meq/L Potassium 3.2 L (3.8-5.2) meq/L Chloride 102 (98-112) meq/L Carbon Dioxide 29 (23-33) meq/L Anion Gap 7 (5-20) BUN 12 (7-22) mg/dL Creatinine 0.5 (0.50-1.20) mg/dL BUN/Creatinine Ratio 24.00 H (6-20) Glucose 120 H (78-110) mg/dL Calculated Osmolality 286.0 (267-292) mOsm/kg Calcium 8.2 L (8.7-10.7) mg/dL Vital Signs (Last 8 hours) Temp Pulse Resp BP Pulse Ox 03/10/17 13:00 98.8 F 98 20 149/75 95 Assessment: Right hemiarthroplasty doing well Plan: Patient doing well and is gotten up with physical therapy will continue with this recheck labs in the morning. Pain control as needed. DVT prophylaxis with aspirin and pneumatics
--- NOTE | 2017-03-10 17:55 | PT.PROG ---
Progress Note Progress Note: S: Elvia was not speaking coherently. O: Elvia was non-responsive to prompts for treatment. Treatment consisted of: max assist x2 supine to sit and sit to stand transfer, ambulation with max assist x2 3ft to hospital chair, max assist x2 transfer from stand to sit. A: Elvia seems to be in a lot of pain, but is not able to coherently express her symptoms. Elvia is able to follow simple prompts during treatment, but is not able to participate fully in treatment and requires max assistance with all activities. P: continue POC.
[2017-03-11] MEDS: MORPHINE SULFATE 2 MG/1 ML IVP PRN ×2 (00:54→22:47)
[2017-03-11] MEDS: Sodium Chloride 0.9% 1,000 ML PRIMARY IV SCH (02:13)
[2017-03-11 04:47] LABS: Hematocrit [HCT] 29.7 % (37.0-47.0); Hemoglobin [HGB] 9.7 g/dL (12.0-16.0); MEAN CORPUSCULAR HEMOGLOBIN 28.4 PG (27-31); MEAN CORPUSCULAR HGB CONC 32.7 g/dL (33-37); MEAN CORPUSCULAR VOLUME 86.8 FL (81-99); MEAN PLATELET VOLUME 9.4 FL (7.4-12.2); RED BLOOD COUNT 3.42 10^6/uL (4.20-5.40)
[2017-03-11 05:02] LABS: BLOOD UREA NITROGEN 10 mg/dL (7-22)
[2017-03-11] MEDS: LEVOTHYROXINE 75 MCG TABLET PO SCH ×2 (05:25→06:14)
--- NOTE | 2017-03-11 06:08 | PDOC(PROG) ---
Objective : Data - Labs CBC and BMP: 03/11/17 04:13 03/11/17 04:13 Assessment and Plan - Patient Problems (1) Alzheimer disease Current Visit: Yes Status: Chronic Comment: no change Code(s): G30.9 - Alzheimer's disease, unspecified (2) Hip fracture, right Current Visit: Yes Status: Acute Comment: cont pt ot defer to ortho Code(s): S72.001A - Fracture of unspecified part of neck of right femur, initial encounter for closed fracture (3) Hypertension Current Visit: Yes Status: Acute Comment: stable Code(s): I10 - Essential (primary) hypertension (4) Hypokalemia Current Visit: Yes Status: Acute Comment: replace Code(s): E87.6 - Hypokalemia (5) Low iron Current Visit: Yes Status: Acute Code(s): E61.1 - Iron deficiency (6) Low vitamin B12 level Current Visit: Yes Status: Acute Code(s): E53.8 - Deficiency of other specified B group vitamins (7) Hypothyroidism Current Visit: Yes Status: Acute Comment: tsh is 8 will increase synthroid Code(s): E03.9 - Hypothyroidism, unspecified
[2017-03-11] MEDS ORDERED: LEVOTHYROXINE 75 MCG TABLET PO ONE (06:16)
[2017-03-11] MEDS ORDERED: Magnesium Sulfate 2gm (Premix) 2 GM/50 ML BAG IV ONE (07:15)
[2017-03-11] MEDS ORDERED: CYANOCOBALAMIN 1000 MCG/1 ML VIAL IM ONE (07:15)
--- NOTE | 2017-03-11 08:45 | PDOC(PROG) ---
Interval History: Patient had an uneventful night no complaints Objective : Data - Labs CBC and BMP: 03/11/17 04:13 03/11/17 04:13 Objective : Exam - General General Appearance: Cooperative - Respiratory Respiratory Exam: Clear to Auscultation - Bilaterally, Breathing Non Labored, Normal To Percussion - Cardiovascular Cardiovascular Exam: RRR, No Murmur, No Clicks, No Gallops - Extremities Extremities Exam: Normal Inspection, No Clubbing Present, No Edema Present - Neurological Neurological Exam: Alert Assessment and Plan - Patient Problems (1) Alzheimer disease Current Visit: Yes Status: Chronic Comment: No change Code(s): G30.9 - Alzheimer's disease, unspecified (2) Hip fracture, right Current Visit: Yes Status: Acute Comment: Deferred to orthopedic surgery for when patient can be transferred back to skilled nursing Code(s): S72.001A - Fracture of unspecified part of neck of right femur, initial encounter for closed fracture (3) Hypertension Current Visit: Yes Status: Acute Comment: Stable at present time Code(s): I10 - Essential (primary) hypertension (4) Hypokalemia Current Visit: Yes Status: Acute Comment: Replace with IV banana bags Code(s): E87.6 - Hypokalemia (5) Low iron Current Visit: Yes Status: Acute Comment: Replace by mouth Code(s): E61.1 - Iron deficiency (6) Low vitamin B12 level Current Visit: Yes Status: Acute Comment: IM injection Code(s): E53.8 - Deficiency of other specified B group vitamins (7) Hypothyroidism Current Visit: Yes Status: Acute Comment: Increased to 88 g TSH is 8.7 Code(s): E03.9 - Hypothyroidism, unspecified
[2017-03-11] MEDS: HYDROcodone-APAP 5 MG -325 MG TABLET PO PRN ×2 (09:09→13:52)
[2017-03-11] MEDS: FOLIC ACID 1 MG TABLET PO SCH (09:12)
[2017-03-11] MEDS: DOCUSATE 100 MG CAPSULE PO SCH ×2 (09:12→21:33)
[2017-03-11] MEDS: ASPIRIN 325 MG EC TABLET PO SCH ×2 (09:12→21:33)
[2017-03-11] MEDS: FERROUS GLUCONATE 324 MG TABLET PO SCH (09:12)
--- NOTE | 2017-03-11 10:24 | PTI REPORT ---
Thank you for the referral of Elvia Quinones. She was seen on 03/10/17 for an inpatient evaluation secondary to a hip fracture. SUBJECTIVE: The patient is a 76-year-old female. Nursing staff informed us that the patient lives in the [facility] and has severe cognitive issues including dementia. Nursing stated the patient had also been given Morphine prior to this therapy session. PAST MEDICAL HISTORY: Past medical history can be found in the patient's medical record. OBJECTIVE FINDINGS: General observations: The patient was found in hospital bed upon the therapist' s arrival? She was neither alert or aware. She was moaning and seemed to respond to verbal cues for therapy, but she was unable to open her eyes when prompted. Bed mobility: The patient was transferred with dependent assist x2 from supine position to sitting edge of bed at which point she began to open her eyes. Transfers: The patient was transferred with dependent assist x2 to recliner chair. The patient was able to grasp an assistive device but was unable to use it. She attempted to follow verbal commands to move her extremities during transfers but she needed assistance to move both upper and lower extremities. Pain: The patient was unable to verbalize the extent of her pain, but was seemingly in pain because she was moaning throughout the entire therapy session. ASSESSMENT: The patient has a poor prognosis secondary to dementia and poor cognition. Problem List: Poor muscle strength Patient is unable to participate in bed mobility or transfers Patient is unable to perform activities of daily living Short-Term Goals: To be met by discharge from inpatient: Patient will have increased muscle strength to fair. Patient will be able to perform bed mobility, transfers, and ADLs with mod assist. Long-Term Goals: To be met following discharge from inpatient: Patient will return to [facility] and begin participation in physical therapy at [facility]. TREATMENT PLAN: Patient will be seen B.I.D during the week and one time per day over the weekend as an inpatient to address the above goals and objectives. INITIAL TREATMENT: Treatment today consisted of the initial evaluation followed by dependent assist transfer x2 from bed to chair. Dictated by: ONDINA Russo Supervised by: GERARDO Baron
[2017-03-11] MEDS: Sodium Chloride 0.9% 1,000 ML with Multivitamin Inj 10 ML, Thiamine Inj 100 MG, Folic A... IV SCH ×5 (11:25)
[2017-03-11] MEDS ORDERED: fentaNYL Inj 100 MCG/2 ML VIAL ONE (13:38)
--- NOTE | 2017-03-11 15:43 | ORTHO.PROG ---
Last Taken Vital Signs: Vital Signs - Last Taken Temperature 97.7 F 03/11/17 13:00 Pulse Rate 80 03/11/17 13:00 Respiratory Rate 18 03/11/17 13:00 Blood Pressure 170/80 03/11/17 13:00 Pulse Ox 93 03/11/17 13:00 Subjective: Patient seems to be doing well Objective: PREVENA dressing drain is in place no evidence of infection. Patient seems to move knees and ankles toes reasonably well. No unusual swelling of the lower extremities. Laboratory Results 03/11/17 03/11/17 03/11/17 Range/Units 04:13 04:13 04:13 WBC 7.79 (4.8-10.8) 10^3/uL RBC 3.42 L (4.20-5.40) 10^6/uL Hgb 9.7 L (12.0-16.0) g/dL Hct 29.7 L (37.0-47.0) % MCV 86.8 (81-99) FL MCH 28.4 (27-31) PG MCHC 32.7 L (33-37) g/dL RDW Std Deviation 49.5 (39-50) fL RDW Coeff of Carlota 15.9 H (11.5-14.5) % Plt Count 243 (140-350) 10*3/uL MPV 9.4 (7.4-12.2) FL Sodium 139 (135-145) meq/L Potassium 2.6 L (3.8-5.2) meq/L Chloride 103 (98-112) meq/L Carbon Dioxide 31 (23-33) meq/L Anion Gap 5 (5-20) BUN 10 (7-22) mg/dL Creatinine 0.4 L (0.50-1.20) mg/dL Estimated GFR Sign [employer] BUN/Creatinine Ratio 25.00 H (6-20) Glucose 146 H (78-110) mg/dL Calculated Osmolality 289.0 (267-292) mOsm/kg Calcium 8.1 L (8.7-10.7) mg/dL Magnesium 1.7 (1.6-2.4) mg/dL Vital Signs (24 hrs) Temp Pulse Resp BP Pulse Ox 03/11/17 13:00 97.7 F 80 18 170/80 93 03/11/17 07:37 97.7 F 73 16 154/76 90 03/11/17 04:45 2 03/11/17 04:12 97.8 F 76 20 146/68 97 03/11/17 01:00 98.0 F 87 20 160/74 91 03/10/17 21:00 98.5 F 93 20 129/67 99 03/10/17 17:00 98.2 F 98 20 158/81 95 Assessment: Right femoral neck fracture Alzheimer's Plan: Patient is seems to be making some very slow progress with therapy all be at the fact that she is unable to follow commands well she seems to be able to understand and has been improving her mobilization. Patient with significant risks with return to long term in regard to drain, infection, etc. we'll continue to follow.
--- NOTE | 2017-03-11 17:27 | PT.PROG ---
Progress Note Progress Note: S: Elvia reports that she is not in pain. She asked why she was in the hospital and stated that she did not want to be here. O: Elvia was transferred with dependent assist x2 from sup to EOB and from sit to stand. Elvia was then transferred from standing to sitting on reclining chair. Elvia was left in recliner chair with bed alarm on and call light within reach. A: Elvia was able to follow verbal instructions for movement and could initiate movement of her UE/LE during transfers, but required assistance to move her extremities during the transfer. Elvia was able to open eyes when prompted. She is showing improvement in her ability to communicate verbaly, where she was unable to do so yesterday. P: Continue POC.
--- NOTE | 2017-03-11 17:29 | PT.PROG ---
Progress Note Progress Note: S: Elvia was unable to speak coherently. O: Elvia was transferred from recliner chair to seated EOB and to supine lying on bed with dep assist x2. Elvia was left in hospital bed with bed alarm on and call light within reach. A: Elvia demonstrated improvement in her ability to move her UE/LE during transfers, but continues to be dependent during transfers. P: Continue POC.
[2017-03-12] MEDS: LEVOTHYROXINE 88 MCG TABLET PO SCH (04:58)
[2017-03-12 05:07] LABS: Hematocrit [HCT] 31.1 % (37.0-47.0); Hemoglobin [HGB] 10.2 g/dL (12.0-16.0); MEAN CORPUSCULAR HEMOGLOBIN 28.3 PG (27-31); MEAN CORPUSCULAR HGB CONC 32.8 g/dL (33-37); MEAN CORPUSCULAR VOLUME 86.1 FL (81-99); MEAN PLATELET VOLUME 9.2 FL (7.4-12.2); RED BLOOD COUNT 3.61 10^6/uL (4.20-5.40)
[2017-03-12 05:16] LABS: BLOOD UREA NITROGEN 9 mg/dL (7-22)
[2017-03-12] MEDS: POTASSIUM CHLORIDE 20 MEQ TAB PO SCH ×3 (08:24→21:41)
[2017-03-12] MEDS: ASPIRIN 325 MG EC TABLET PO SCH ×2 (08:24→21:39)
[2017-03-12] MEDS: FERROUS GLUCONATE 324 MG TABLET PO SCH (08:25)
[2017-03-12] MEDS: FOLIC ACID 1 MG TABLET PO SCH (08:25)
[2017-03-12] MEDS: DOCUSATE 100 MG CAPSULE PO SCH ×2 (08:25→21:39)
--- NOTE | 2017-03-12 11:28 | PDOC(PROG) ---
Interval History: No complaints unable to follow commands this is chronic from Alzheimer's disease Objective : Data - Labs CBC and BMP: 03/12/17 04:40 03/12/17 04:40 Objective : Exam - General General Appearance: Cooperative - Respiratory Respiratory Exam: Clear to Auscultation - Bilaterally, Breathing Non Labored - Cardiovascular Cardiovascular Exam: RRR, No Murmur, No Clicks - Extremities Extremities Exam: No Clubbing Present, No Edema Present, No Cyanosis Present Assessment and Plan - Patient Problems (1) Alzheimer disease Current Visit: Yes Status: Chronic Comment: No changes clinically Code(s): G30.9 - Alzheimer's disease, unspecified (2) Hip fracture, right Current Visit: Yes Status: Acute Comment: Deferred to or throat PTOT Code(s): S72.001A - Fracture of unspecified part of neck of right femur, initial encounter for closed fracture (3) Hypertension Current Visit: Yes Status: Acute Comment: Stable Code(s): I10 - Essential (primary) hypertension (4) Hypokalemia Current Visit: Yes Status: Acute Comment: Continue replacement Code(s): E87.6 - Hypokalemia (5) Low iron Current Visit: Yes Status: Acute Comment: Continue replacement Code(s): E61.1 - Iron deficiency (6) Low vitamin B12 level Current Visit: Yes Status: Acute Comment: Continue replacement Code(s): E53.8 - Deficiency of other specified B group vitamins (7) Hypothyroidism Current Visit: Yes Status: Acute Code(s): E03.9 - Hypothyroidism, unspecified
--- NOTE | 2017-03-12 11:53 | OT.PROG ---
Progress Note Progress Note: S: pt did not verbalize anything this morning. O: pt was seen in her recliner today. She completed hygiene activity while seated with max a to wash face /hands. She was non verbal and was unable to open eyes throughout tx. She did take a big drink of her drink that was delivered by cafeteria. A: pt remains max A with hygiene at this time. P: continue per POC.
--- NOTE | 2017-03-12 11:59 | PT.PROG ---
Progress Note Progress Note: S: Elvia reports that she is not in pain. O: Elvia was transferred from supine to sitting on EOB with dependent assist x2. Elvia was brought to standing position and stood stationary for 5 min before being transferred to recliner chair, all with dependent assist x2. Elvia was left with bed alarm on and call light within reach. A: Elvia's condition has improved since yesterday. Elvia was able to maintain having her eyes open for the duration of treatment and also responded to verbal cues to move her extremities during the transfer. P: Continue POC.
--- NOTE | 2017-03-12 15:09 | OTI REPORT ---
Thank you for the referral of Elvia Quinones. She was seen on 03/11/17 for an occupational therapy inpatient evaluation secondary to a right total hip arthroplasty. SUBJECTIVE: The patient is a 76-year-old female who is on the memory care unit at the [facility]. She is being seen secondary to a right total hip arthroplasty. The patient was a poor historian. She was able to state her first and last name, she did not know where she was, she did not know the date, and she stated "I did not have surgery". PAST MEDICAL HISTORY: Past medical history can be found in the patient's medical record. OBJECTIVE FINDINGS: Bed mobility: The patient was able to come from supine to sit with max assist. Transfers: The patient requires max assist to transfer from sit to stand. Range of motion: The patient was not able to move arms actively when asked to do so; however, with active assistive range of motion she was able to move hands and upper extremities to 90 degrees on the left. On the right she resisted movement. Cognition: The patient was not able to follow most commands. Activities of daily living: Today we assessed the patient's ability to complete hygiene activities. She was able to hold onto washcloth and wash her chin and part of her lip area; she was not able to reach higher than that. She did get a little frustrated with more than one verbal cues at a time. She does require increased time to process through tasks. Strength: Strength was not assessed in the patient's upper extremities as the patient does not follow directives very well. ASSESSMENT: At this time the patient is very cognitively involved. She does follow some directions if it is a basic ADL. The patient did know her name but she did not even think she had surgery. At this point the patient would not be able to learn adaptive equipment for dressing. She does not follow commands for upper extremity range of motion. The only thing that she did follow commands for was hygiene tasks. Occupational Therapy Goals: To be met following discharge from inpatient: Patient will be able to return back to the [facility] and continue with PT there. TREATMENT PLAN: Patient will be seen one time per day during the week and one time per day over the weekend as an inpatient for simple ADL and routine type activities. At this point in time the patient's cognition is very limiting. INITIAL TREATMENT: Treatment today consisted of the initial evaluation activities only. LEED
--- NOTE | 2017-03-12 15:35 | PT.PROG ---
Progress Note Progress Note: S: Elvia is up in chair upon PT arrival. Pt is more alert this afternoon but is confused. Pt states that she does not want to be here but when prompted to work on standing, pt scooted self to edge of chair. O: Tx consisted of: STS with mod A x 2 - pt unable to get all the way up with our first attempt, during second attempt, pt's bilateral feet were blocked as she was sliding and mod A x 2 was provided with tactile cuing to stand straight and tuck hips under. Once standing, pt required max assist to move B hands onto the walker in the correct position. Pt required max cuing and max A x 2 for amb x 10 feet with FWW - pt able to amb forward okay but required max assist with backing up to bed including cuing for sliding feet. Pt performed 2 more STS from EOB with max assist for set up and mod A x 2 with blocking feet. Pt able to stand for 1 minute before requiring seated rest break. Pt required max A x 2 with EOB to supine transfer. Once in bed, alarm was set and call light placed within reach. A: Pt was more alert during this session and when prompted to stand she did make an attempt but continues to require mod-max A x 2 with all transfers and ambulation. Pt has difficulties making turns with walker and backing up due to her poor cognition and weakness. P: Continue per POC.
--- NOTE | 2017-03-12 16:37 | ORTHO.PROG ---
Last Taken Vital Signs: Vital Signs - Last Taken Temperature 97.0 F 03/12/17 13:00 Pulse Rate 83 03/12/17 13:00 Respiratory Rate 18 03/12/17 13:00 Blood Pressure 146/87 03/12/17 13:00 Pulse Ox 96 03/12/17 13:00 Subjective: Patient seems to be doing fine no evidence of marked pain. Objective: Right hip with no marked swelling and no fluctuance. Knee with good mobility of motion as well as foot and ankle. Laboratory Results 03/12/17 03/12/17 Range/Units 04:40 04:40 WBC 7.62 (4.8-10.8) 10^3/uL RBC 3.61 L (4.20-5.40) 10^6/uL Hgb 10.2 L (12.0-16.0) g/dL Hct 31.1 L (37.0-47.0) % MCV 86.1 (81-99) FL MCH 28.3 (27-31) PG MCHC 32.8 L (33-37) g/dL RDW Std Deviation 47.4 (39-50) fL RDW Coeff of Carlota 15.4 H (11.5-14.5) % Plt Count 263 (140-350) 10*3/uL MPV 9.2 (7.4-12.2) FL Sodium 137 (135-145) meq/L Potassium 2.4 L* (3.8-5.2) meq/L Chloride 97 L (98-112) meq/L Carbon Dioxide 34 H (23-33) meq/L Anion Gap 6 (5-20) BUN 9 (7-22) mg/dL Creatinine 0.4 L (0.50-1.20) mg/dL Estimated GFR Manager Sales Support BUN/Creatinine Ratio 22.50 H (6-20) Glucose 141 H (78-110) mg/dL Calculated Osmolality 284.0 (267-292) mOsm/kg Calcium 7.8 L (8.7-10.7) mg/dL Vital Signs (24 hrs) Temp Pulse Resp BP Pulse Ox 03/12/17 13:00 97.0 F 83 18 146/87 96 03/12/17 08:14 97.9 F 74 20 176/84 96 03/12/17 04:58 97.6 F 72 20 166/82 96 03/12/17 04:46 95 03/12/17 00:30 97.6 F 83 22 154/79 95 03/11/17 20:54 96.9 F 80 16 172/89 93 Assessment: Right femoral neck fracture with hemiarthroplasty Plan: Continue with physical therapy and occupational therapy. Keep current dressing in place until suction device stops working then cover incision and meagan with Silverlon dressing. We will remove meagan 12 days after surgery. Follow- up with orthopedics in 2 weeks. Patient to do therapy while at assisted for transfers and ambulation with max assist as needed
--- NOTE | 2017-03-12 16:52 | DI ---
AP VIEW OF THE LEFT HIP, 03/08/2017 7:50 AM: Clinical History: Fracture of the right hip. Because of the small stature of the patient, measurement of the left hip is required to determine the size of the prosthesis needed for the right hip. Previous Exam: None at this facility. An AP view of the left hip is submitted. There is no acute soft tissue, osseous, or joint abnormality . Because of potential for magnification errors, a CT scan of the hip will be performed. There is ost eoporosis. Reading: Normal AP view of the left hip.
[2017-03-12] MEDS: Sodium Chloride 0.9% 1,000 ML with Multivitamin Inj 10 ML, Thiamine Inj 100 MG, Folic A... IV SCH ×5 (17:04)
[2017-03-12] MEDS: HYDROcodone-APAP 5 MG -325 MG TABLET PO PRN (19:28)
[2017-03-13] MEDS: HYDROcodone-APAP 5 MG -325 MG TABLET PO PRN ×5 (02:15→22:49)
[2017-03-13] MEDS: LEVOTHYROXINE 88 MCG TABLET PO SCH (04:45)
[2017-03-13 05:02] LABS: BLOOD UREA NITROGEN 10 mg/dL (7-22); SERUM ALBUMIN 2.6 g/dL (3.5-4.8)
[2017-03-13] MEDS: FOLIC ACID 1 MG TABLET PO SCH (09:57)
[2017-03-13] MEDS: DOCUSATE 100 MG CAPSULE PO SCH ×2 (09:57→21:03)
[2017-03-13] MEDS: POTASSIUM CHLORIDE 20 MEQ TAB PO SCH ×3 (09:57→21:04)
[2017-03-13] MEDS: FERROUS GLUCONATE 324 MG TABLET PO SCH (09:58)
[2017-03-13] MEDS: ASPIRIN 325 MG EC TABLET PO SCH ×2 (09:58→20:54)
[2017-03-13] MEDS ORDERED: Magnesium Sulfate 2gm (Premix) 2 GM/50 ML BAG IV ONE (11:06)
[2017-03-13] MEDS: Sodium Chloride 0.9% 1,000 ML with Multivitamin Inj 10 ML, Thiamine Inj 100 MG, Folic A... IV SCH ×5 (11:06)
--- NOTE | 2017-03-13 11:08 | PDOC(PROG) ---
Interval History: Patient Jeaneth morley with the unfortunately dementia Alzheimer's type unable to follow commands this is chronic basic. Objective : Data - Labs CBC and BMP: 03/12/17 04:40 03/13/17 04:23 Objective : Exam - Head Head Exam: Normal Inspection - Respiratory Respiratory Exam: Clear to Auscultation - Bilaterally, Breathing Non Labored, Normal To Percussion - Cardiovascular Cardiovascular Exam: RRR, No Murmur, No Clicks Assessment and Plan - Patient Problems (1) Alzheimer disease Current Visit: Yes Status: Chronic Comment: Stable no change Code(s): G30.9 - Alzheimer's disease, unspecified (2) Hip fracture, right Current Visit: Yes Status: Acute Comment: Deferred to or so according to Dr. Yang patient can continue doing PT OT at the [facility] Code(s): S72.001A - Fracture of unspecified part of neck of right femur, initial encounter for closed fracture (3) Hypertension Current Visit: Yes Status: Acute Comment: Stable Code(s): I10 - Essential (primary) hypertension (4) Hypokalemia Current Visit: Yes Status: Acute Comment: Continue replacement with IV and by mouth Code(s): E87.6 - Hypokalemia (5) Low iron Current Visit: Yes Status: Acute Comment: Continue replacement Code(s): E61.1 - Iron deficiency (6) Low vitamin B12 level Current Visit: Yes Status: Acute Code(s): E53.8 - Deficiency of other specified B group vitamins (7) Hypothyroidism Current Visit: Yes Status: Acute Code(s): E03.9 - Hypothyroidism, unspecified (8) Hypomagnesemia Current Visit: Yes Status: Acute Comment: Replace 2 mg magnesium is 1.8 and will like to see it above 2 Code(s): E83.42 - Hypomagnesemia
--- NOTE | 2017-03-13 13:47 | PT.PROG ---
Progress Note Progress Note: S: Elvia was speaking incoherently. O: Elvia was transferred from supine to sit and from sit to stand with dependent assist x2. She was then transferred to the recliner chair with dependent assist x1. She was left in recliner chair with bed alarm on and call light within reach. A: Elvia was able to verbalize more than she has in the past several dies. However, much of what she says is difficult to understand. Elvia has decreased righting response when in a seated position. She continues to be able to slightly move her UE/LE during transfers, but still requires dependent assist on all transfers. Elvia would continue to benefit from skilled therapy. P:
--- NOTE | 2017-03-13 17:33 | PT.PROG ---
Progress Note Progress Note: S: Elvia asked if she could have someone to keep her company. She states that she is not in pain. O: Elvia was transferred with dependent assist x1 from chair to hospital bed. Elvia was left in hospital bed with alarm on and call light within reach. A: Elvia is showing improvement in her ability to speak and open her eyes. She continues to need dependent assist with transfers, but can assist with UE and LE. P: Continue POC.
--- NOTE | 2017-03-13 17:46 | OT.PROG ---
Progress Note Progress Note: S: When questioned pt. did not report any pain. O: Pt. seen from 16:00 to 16:15 for occupational therapy related to functional activities. Pt was supine in bed upon arrival and did not open eyes, however would respond to questions. Pt completed hand washing tasks including moving wash cloth from hand to hand with max verbal cues and minimal assistance. Pt. also completed face washing task with max assist and max verbal cues. Following therapy session, pt was left in bed with call light in place. A: Pt. was unable to open her eyes for therapy session today and was only able to complete minimal hygiene tasks due to cognition and alertness. P: Continue POC. TOPHER Roa
[2017-03-13] MEDS: MORPHINE SULFATE 2 MG/1 ML IVP PRN (22:45)
[2017-03-14] MEDS: HYDROcodone-APAP 5 MG -325 MG TABLET PO PRN ×5 (02:18→21:23)
[2017-03-14] MEDS: MORPHINE SULFATE 2 MG/1 ML IVP PRN (02:32)
[2017-03-14] MEDS: LEVOTHYROXINE 88 MCG TABLET PO SCH (04:56)
[2017-03-14 08:02] LABS: BASOPHILS # (AUTO) 0.03 10*3/UL; BASOPHILS % (AUTO) 0.4 % (0-1); EOSINOPHILS # (AUTO) 0.16 10*3/UL; EOSINOPHILS % (AUTO) 2.1 % (0-8); Hematocrit [HCT] 33.6 % (37.0-47.0); Hemoglobin [HGB] 10.9 g/dL (12.0-16.0); LYMPHOCYTES # (AUTO) 1.03 10*3/uL; MEAN CORPUSCULAR HEMOGLOBIN 27.9 PG (27-31); MEAN CORPUSCULAR HGB CONC 32.4 g/dL (33-37); MEAN CORPUSCULAR VOLUME 86.2 FL (81-99); MONOCYTES # (AUTO) 0.71 10*3/UL (0.3-0.8); MONOCYTES % (AUTO) 9.1 % (5-15); NEUTROPHILS # (AUTO) 5.83 10*3/UL; NEUTROPHILS % (AUTO) 74.8 % (50-80)
[2017-03-14 08:16] LABS: PLATELET MORPHOLOGY COMMENT NORMAL MORPHOLOGY (NORM); RBC MORPHOLOGY COMMENT NORMAL MORPHOLOGY (NORM); WBC MORPHOLOGY COMMENT NORMAL MORPHOLOGY (NORM)
[2017-03-14 08:23] LABS: BLOOD UREA NITROGEN 6 mg/dL (7-22); SERUM ALBUMIN 2.9 g/dL (3.5-4.8)
--- NOTE | 2017-03-14 08:31 | PDOC(PROG) ---
Interval History: Amazing improvement this morning she is answering questions and following commands. No pain Objective : Data - Labs CBC and BMP: 03/14/17 07:59 03/14/17 07:59 Objective : Exam - General General Appearance: Cooperative - Respiratory Respiratory Exam: Clear to Auscultation - Bilaterally, Breathing Non Labored - Cardiovascular Cardiovascular Exam: RRR, No Murmur, No Clicks - GI/Abdominal GI/Abdominal Exam: Non Tender, Non Distended, Soft - Extremities Extremities Exam: No Clubbing Present, No Edema Present, No Cyanosis Present Assessment and Plan - Patient Problems (1) Alzheimer disease Current Visit: Yes Status: Chronic Comment: She is having a great day today follows commands and answers questions Code(s): G30.9 - Alzheimer's disease, unspecified (2) Hip fracture, right Current Visit: Yes Status: Acute Comment: Defer to orthopedic surgery most likely patient can be sent back to group home for continued physical therapy Code(s): S72.001A - Fracture of unspecified part of neck of right femur, initial encounter for closed fracture (3) Hypertension Current Visit: Yes Status: Acute Comment: Stable at present time Code(s): I10 - Essential (primary) hypertension (4) Hypokalemia Current Visit: Yes Status: Acute Comment: Continue replacement today was 3.7 great improvement Code(s): E87.6 - Hypokalemia (5) Low iron Current Visit: Yes Status: Acute Comment: Continue replacement Code(s): E61.1 - Iron deficiency (6) Low vitamin B12 level Current Visit: Yes Status: Acute Comment: Continue replacement Code(s): E53.8 - Deficiency of other specified B group vitamins (7) Hypothyroidism Current Visit: Yes Status: Acute Comment: Have increased to 88 mg Code(s): E03.9 - Hypothyroidism, unspecified (8) Hypomagnesemia Current Visit: Yes Status: Acute Comment: Since been replaced it is now 2 Code(s): E83.42 - Hypomagnesemia
[2017-03-14] MEDS: ASPIRIN 325 MG EC TABLET PO SCH ×2 (08:33→21:26)
[2017-03-14] MEDS: FOLIC ACID 1 MG TABLET PO SCH (08:34)
[2017-03-14] MEDS: DOCUSATE 100 MG CAPSULE PO SCH ×2 (08:34→21:25)
[2017-03-14] MEDS: POTASSIUM CHLORIDE 20 MEQ TAB PO SCH ×3 (08:34→21:26)
[2017-03-14] MEDS: FERROUS GLUCONATE 324 MG TABLET PO SCH (08:34)
--- NOTE | 2017-03-14 09:36 | PT.PROG ---
Progress Note Progress Note: S:Pt. states she is scared. She states she doesn't want to be hurt. She does not c/o any pain. O: Treatment consisted of functional activities: bed mobility with min assist x 1 from supine to sit on eob. She then performed transfer from EOB to recliner with min to mod assist x 2 with use of FWW and gait belt. She also performed sit to stands x 5 with use of walker. She was placed in the recliner and OT assisted with hygiene activities. Nursing was notified. A: Pt. is able to perform sit to stand with little assist. She does present slightly confused. She requires verbal and tactile cuing to move her feet while transferring. She was willing to perform activities. She did very well with bed mobility. P: Continue per POC to increase strength and activity tolerance. Shelia Crook, FACULTY RESEARCH ASSISTANT
[2017-03-14] MEDS: Sodium Chloride 0.9% 1,000 ML with Multivitamin Inj 10 ML, Thiamine Inj 100 MG, Folic A... IV SCH ×5 (10:43)
[2017-03-15] MEDS: HALOPERIDOL LACTATE 5 MG/1 ML AMPULE IVP PRN ×2 (00:39→10:40)
[2017-03-15] MEDS: HYDROcodone-APAP 5 MG -325 MG TABLET PO PRN ×3 (01:25→16:43)
[2017-03-15] MEDS: MORPHINE SULFATE 2 MG/1 ML IVP PRN (04:03)
[2017-03-15] MEDS: LEVOTHYROXINE 88 MCG TABLET PO SCH (05:15)
[2017-03-15] MEDS: FOLIC ACID 1 MG TABLET PO SCH (09:35)
[2017-03-15] MEDS: DOCUSATE 100 MG CAPSULE PO SCH ×2 (09:35→20:56)
[2017-03-15] MEDS: ASPIRIN 325 MG EC TABLET PO SCH ×2 (09:35→20:57)
[2017-03-15] MEDS: FERROUS GLUCONATE 324 MG TABLET PO SCH (09:35)
[2017-03-15] MEDS: POTASSIUM CHLORIDE 20 MEQ TAB PO SCH ×3 (09:35→20:58)
[2017-03-15] MEDS: Sodium Chloride 0.9% 1,000 ML with Multivitamin Inj 10 ML, Thiamine Inj 100 MG, Folic A... IV SCH ×5 (12:50)
[2017-03-15] MEDS ORDERED: HALOPERIDOL LACTATE 5 MG/1 ML AMPULE IM PRN (17:56)
[2017-03-15] MEDS ORDERED: ACETAMINOPHEN 325 MG TABLET PO PRN (17:59)
--- NOTE | 2017-03-15 18:05 | PDOC(PROG) ---
Date and Time of Service: 03/15/2017, 1800 Interval History: Patient seen and evaluated earlier today. I could not obtain a history from the patient due to her dementia. When I asked if she was hurting she stated "yes", but could not locate the area she hurt. Otherwise history was completely unobtainable due to dementia. Objective : Data - Labs CBC and BMP: 03/14/17 07:59 03/14/17 07:59 Additional Lab Results: Laboratory Results 03/07/17 03/07/17 03/07/17 Range/Units 11:05 11:26 11:31 WBC 13.81 H (4.8-10.8) 10^3/uL RBC 3.60 L (4.20-5.40) 10^6/uL Hgb 10.6 L (12.0-16.0) g/dL Hct 32.9 L (37.0-47.0) % MCV 91.4 (81-99) FL MCH 29.4 (27-31) PG MCHC 32.2 L (33-37) g/dL RDW Std Deviation 47.2 (39-50) fL RDW Coeff of Carlota 14.8 H (11.5-14.5) % Plt Count 390 H (140-350) 10*3/uL MPV 9.0 (7.4-12.2) FL Immature Gran % (Auto) 0.4 (0-5) % Neut % (Auto) 87.5 H (50-80) % Lymph % (Auto) 4.3 L (10-50) % [place] % (Auto) 7.6 (5-15) % Eos % (Auto) 0 (0-8) % Baso % (Auto) 0.2 (0-1) % Immature Gran # (Auto) 0.06 10*3/UL Neut # (Auto) 12.07 10*3/UL Lymph # (Auto) 0.60 10*3/uL [place] # (Auto) 1.05 H (0.3-0.8) 10*3/UL Eos # (Auto) 0 10*3/UL Baso # (Auto) 0.03 10*3/UL WBC Morphology Comment See comments (NORM) Plt Morphology Comment Normal morphology (NORM) RBC Morph Comment Normal morphology (NORM) VBG pH 7.38 (7.32-7.42) VBG pCO2 41 L (45-55) mmHg VBG HCO3 24 (22-26) mmol/L VBG Base Excess -1 (-2-2) MMOL/L Sodium 137 (135-145) meq/L Potassium 4.0 (3.8-5.2) meq/L Chloride 98 (98-112) meq/L Carbon Dioxide 22 L (23-33) meq/L Anion Gap 17 (5-20) BUN 19 (7-22) mg/dL Creatinine 0.6 (0.50-1.20) mg/dL Estimated GFR BUN/Creatinine Ratio 31.66 H (6-20) Glucose 341 H (78-110) mg/dL Mean Blood Glucose mg/dL Hemoglobin A1c (4.2-6.0) % Calculated Osmolality 298.0 H (267-292) mOsm/kg Lactic Acid 4.3 H (0.70-2.10) MMOL/L Calcium 9.4 (8.7-10.7) mg/dL Magnesium (1.6-2.4) mg/dL Iron (37-170) UG/DL TIBC (265-497) ug/dL % Saturation (14-50) % Ferritin (12.00-336.70) ng/mL Total Bilirubin 0.7 (0.3-1.2) mg/dL AST 35 (8-39) IU/L ALT 37 (9-52) IU/L Alkaline Phosphatase 92 (38-126) IU/L C-Reactive Protein 0.5 (0.0-0.9) mg/dL Total Protein 7.3 (6.1-8.0) g/dL Albumin 4.1 (3.5-4.8) g/dL Globulin 3.2 (2.50-4.10) g/dL Albumin/Globulin Ratio 1.20 L (1.3-2.0) mg/g Vitamin B12 (239-931) pg/mL Serum Folate (2.76-20.0) NG/ML TSH (0.2700-4.2000) uIU/mL Free T4 (0.93-1.71) ng/dL Ur Collection Type Urine Color (Y) Urine Clarity (CLEAR) Urine pH (5.0-8.5) Ur Specific [place] (1.005-1.030) Urine Protein (NEG) mg/dl Urine Glucose (UA) (NEG) mg/dL Urine Ketones (NEG) Urine Occult Blood (NEG) Urine Nitrate (NEG) Urine Bilirubin (NEG) Urine Urobilinogen (0.2) EU/dL Ur Leukocyte Esterase (NEG) Ur Culture Indicated? Blood Type Antibody Screen Crossmatch 03/07/17 03/07/17 03/08/17 Range/Units 12:14 17:24 04:20 WBC 8.22 (4.8-10.8) 10^3/uL RBC 3.37 L (4.20-5.40) 10^6/uL Hgb 10.0 L (12.0-16.0) g/dL Hct 30.5 L (37.0-47.0) % MCV 90.5 (81-99) FL MCH 29.7 (27-31) PG MCHC 32.8 L (33-37) g/dL RDW Std Deviation 46.9 (39-50) fL RDW Coeff of Carlota 14.7 H (11.5-14.5) % Plt Count 330 (140-350) 10*3/uL MPV 9.0 (7.4-12.2) FL Immature Gran % (Auto) 0.2 (0-5) % Neut % (Auto) 79.9 (50-80) % Lymph % (Auto) 9.0 L (10-50) % [place] % (Auto) 10.6 (5-15) % Eos % (Auto) 0.2 (0-8) % Baso % (Auto) 0.1 (0-1) % Immature Gran # (Auto) 0.02 10*3/UL Neut # (Auto) 6.56 10*3/UL Lymph # (Auto) 0.74 10*3/uL [place] # (Auto) 0.87 H (0.3-0.8) 10*3/UL Eos # (Auto) 0.02 10*3/UL Baso # (Auto) 0.01 10*3/UL WBC Morphology Comment Normal morphology (NORM) Plt Morphology Comment Normal morphology (NORM) RBC Morph Comment Normal morphology (NORM) VBG pH (7.32-7.42) VBG pCO2 (45-55) mmHg VBG HCO3 (22-26) mmol/L VBG Base Excess (-2-2) MMOL/L Sodium (135-145) meq/L Potassium (3.8-5.2) meq/L Chloride (98-112) meq/L Carbon Dioxide (23-33) meq/L Anion Gap (5-20) BUN (7-22) mg/dL Creatinine (0.50-1.20) mg/dL Estimated GFR BUN/Creatinine Ratio (6-20) Glucose (78-110) mg/dL Mean Blood Glucose mg/dL Hemoglobin A1c (4.2-6.0) % Calculated Osmolality (267-292) mOsm/kg Lactic Acid (0.70-2.10) MMOL/L Calcium (8.7-10.7) mg/dL Magnesium (1.6-2.4) mg/dL Iron (37-170) UG/DL TIBC (265-497) ug/dL % Saturation (14-50) % Ferritin (12.00-336.70) ng/mL Total Bilirubin (0.3-1.2) mg/dL AST (8-39) IU/L ALT (9-52) IU/L Alkaline Phosphatase (38-126) IU/L C-Reactive Protein (0.0-0.9) mg/dL Total Protein (6.1-8.0) g/dL Albumin (3.5-4.8) g/dL Globulin (2.50-4.10) g/dL Albumin/Globulin Ratio (1.3-2.0) mg/g Vitamin B12 (239-931) pg/mL Serum Folate (2.76-20.0) NG/ML TSH 8.44 H (0.2700-4.2000) uIU/mL Free T4 1.31 (0.93-1.71) ng/dL Ur Collection Type Cath specimen Urine Color Yellow (Y) Urine Clarity Clear (CLEAR) Urine pH 7.0 (5.0-8.5) Ur Specific [place] 1.020 (1.005-1.030) Urine Protein Negative (NEG) mg/dl Urine Glucose (UA) 500 (NEG) mg/dL Urine Ketones Negative (NEG) Urine Occult Blood Negative (NEG) Urine Nitrate Negative (NEG) Urine Bilirubin Negative (NEG) Urine Urobilinogen 1.0 (0.2) EU/dL Ur Leukocyte Esterase Negative (NEG) Ur Culture Indicated? Culture not set Blood Type Antibody Screen Crossmatch 03/08/17 03/08/17 03/08/17 Range/Units 04:20 04:20 07:15 WBC (4.8-10.8) 10^3/uL RBC (4.20-5.40) 10^6/uL Hgb (12.0-16.0) g/dL Hct (37.0-47.0) % MCV (81-99) FL MCH (27-31) PG MCHC (33-37) g/dL RDW Std Deviation (39-50) fL RDW Coeff of Carlota (11.5-14.5) % Plt Count (140-350) 10*3/uL MPV (7.4-12.2) FL Immature Gran % (Auto) (0-5) % Neut % (Auto) (50-80) % Lymph % (Auto) (10-50) % [place] % (Auto) (5-15) % Eos % (Auto) (0-8) % Baso % (Auto) (0-1) % Immature Gran # (Auto) 10*3/UL Neut # (Auto) 10*3/UL Lymph # (Auto) 10*3/uL [place] # (Auto) (0.3-0.8) 10*3/UL Eos # (Auto) 10*3/UL Baso # (Auto) 10*3/UL WBC Morphology Comment (NORM) Plt Morphology Comment (NORM) RBC Morph Comment (NORM) VBG pH (7.32-7.42) VBG pCO2 (45-55) mmHg VBG HCO3 (22-26) mmol/L VBG Base Excess (-2-2) MMOL/L Sodium 139 (135-145) meq/L Potassium 3.9 (3.8-5.2) meq/L Chloride 102 (98-112) meq/L Carbon Dioxide 27 (23-33) meq/L Anion Gap 10 (5-20) BUN 16 (7-22) mg/dL Creatinine 0.5 (0.50-1.20) mg/dL Estimated GFR BUN/Creatinine Ratio 32.00 H (6-20) Glucose 144 H (78-110) mg/dL Mean Blood Glucose 109.138 mg/dL Hemoglobin A1c 5.86 (4.2-6.0) % Calculated Osmolality 291.0 (267-292) mOsm/kg Lactic Acid (0.70-2.10) MMOL/L Calcium 9.1 (8.7-10.7) mg/dL Magnesium (1.6-2.4) mg/dL Iron (37-170) UG/DL TIBC (265-497) ug/dL % Saturation (14-50) % Ferritin (12.00-336.70) ng/mL Total Bilirubin (0.3-1.2) mg/dL AST (8-39) IU/L ALT (9-52) IU/L Alkaline Phosphatase (38-126) IU/L C-Reactive Protein (0.0-0.9) mg/dL Total Protein (6.1-8.0) g/dL Albumin (3.5-4.8) g/dL Globulin (2.50-4.10) g/dL Albumin/Globulin Ratio (1.3-2.0) mg/g Vitamin B12 (239-931) pg/mL Serum Folate (2.76-20.0) NG/ML TSH (0.2700-4.2000) uIU/mL Free T4 (0.93-1.71) ng/dL Ur Collection Type Urine Color (Y) Urine Clarity (CLEAR) Urine pH (5.0-8.5) Ur Specific [place] (1.005-1.030) Urine Protein (NEG) mg/dl Urine Glucose (UA) (NEG) mg/dL Urine Ketones (NEG) Urine Occult Blood (NEG) Urine Nitrate (NEG) Urine Bilirubin (NEG) Urine Urobilinogen (0.2) EU/dL Ur Leukocyte Esterase (NEG) Ur Culture Indicated? Blood Type A POSITIVE Antibody Screen Negative Crossmatch See Detail 03/09/17 03/09/17 03/09/17 Range/Units 04:20 04:20 04:20 WBC (4.8-10.8) 10^3/uL RBC (4.20-5.40) 10^6/uL Hgb (12.0-16.0) g/dL Hct (37.0-47.0) % MCV (81-99) FL MCH (27-31) PG MCHC (33-37) g/dL RDW Std Deviation (39-50) fL RDW Coeff of Carlota (11.5-14.5) % Plt Count (140-350) 10*3/uL MPV (7.4-12.2) FL Immature Gran % (Auto) (0-5) % Neut % (Auto) (50-80) % Lymph % (Auto) (10-50) % [place] % (Auto) (5-15) % Eos % (Auto) (0-8) % Baso % (Auto) (0-1) % Immature Gran # (Auto) 10*3/UL Neut # (Auto) 10*3/UL Lymph # (Auto) 10*3/uL [place] # (Auto) (0.3-0.8) 10*3/UL Eos # (Auto) 10*3/UL Baso # (Auto) 10*3/UL WBC Morphology Comment (NORM) Plt Morphology Comment (NORM) RBC Morph Comment (NORM) VBG pH (7.32-7.42) VBG pCO2 (45-55) mmHg VBG HCO3 (22-26) mmol/L VBG Base Excess (-2-2) MMOL/L Sodium (135-145) meq/L Potassium (3.8-5.2) meq/L Chloride (98-112) meq/L Carbon Dioxide (23-33) meq/L Anion Gap (5-20) BUN (7-22) mg/dL Creatinine (0.50-1.20) mg/dL Estimated GFR BUN/Creatinine Ratio (6-20) Glucose (78-110) mg/dL Mean Blood Glucose mg/dL Hemoglobin A1c (4.2-6.0) % Calculated Osmolality (267-292) mOsm/kg Lactic Acid (0.70-2.10) MMOL/L Calcium (8.7-10.7) mg/dL Magnesium (1.6-2.4) mg/dL Iron 18 L (37-170) UG/DL TIBC 261 L (265-497) ug/dL % Saturation 6.9 L (14-50) % Ferritin 136.00 (12.00-336.70) ng/mL Total Bilirubin (0.3-1.2) mg/dL AST (8-39) IU/L ALT (9-52) IU/L Alkaline Phosphatase (38-126) IU/L C-Reactive Protein (0.0-0.9) mg/dL Total Protein (6.1-8.0) g/dL Albumin (3.5-4.8) g/dL Globulin (2.50-4.10) g/dL Albumin/Globulin Ratio (1.3-2.0) mg/g Vitamin B12 411 (239-931) pg/mL Serum Folate 13.8 (2.76-20.0) NG/ML TSH (0.2700-4.2000) uIU/mL Free T4 (0.93-1.71) ng/dL Ur Collection Type Urine Color (Y) Urine Clarity (CLEAR) Urine pH (5.0-8.5) Ur Specific [place] (1.005-1.030) Urine Protein (NEG) mg/dl Urine Glucose (UA) (NEG) mg/dL Urine Ketones (NEG) Urine Occult Blood (NEG) Urine Nitrate (NEG) Urine Bilirubin (NEG) Urine Urobilinogen (0.2) EU/dL Ur Leukocyte Esterase (NEG) Ur Culture Indicated? Blood Type Antibody Screen Crossmatch 03/10/17 03/10/17 03/11/17 Range/Units 04:38 04:38 04:13 WBC 7.17 7.79 (4.8-10.8) 10^3/uL RBC 3.46 L 3.42 L (4.20-5.40) 10^6/uL Hgb 9.9 L 9.7 L (12.0-16.0) g/dL Hct 30.2 L 29.7 L (37.0-47.0) % MCV 87.3 86.8 (81-99) FL MCH 28.6 28.4 (27-31) PG MCHC 32.8 L 32.7 L (33-37) g/dL RDW Std Deviation 52.3 H 49.5 (39-50) fL RDW Coeff of [place] 16.9 H 15.9 H (11.5-14.5) % Plt Count 249 243 (140-350) 10*3/uL MPV 9.2 9.4 (7.4-12.2) FL Immature Gran % (Auto) (0-5) % Neut % (Auto) (50-80) % Lymph % (Auto) (10-50) % [place] % (Auto) (5-15) % Eos % (Auto) (0-8) % Baso % (Auto) (0-1) % Immature Gran # (Auto) 10*3/UL Neut # (Auto) 10*3/UL Lymph # (Auto) 10*3/uL [place] # (Auto) (0.3-0.8) 10*3/UL Eos # (Auto) 10*3/UL Baso # (Auto) 10*3/UL WBC Morphology Comment (NORM) Plt Morphology Comment (NORM) RBC Morph Comment (NORM) VBG pH (7.32-7.42) VBG pCO2 (45-55) mmHg VBG HCO3 (22-26) mmol/L VBG Base Excess (-2-2) MMOL/L Sodium 138 (135-145) meq/L Potassium 3.2 L (3.8-5.2) meq/L Chloride 102 (98-112) meq/L Carbon Dioxide 29 (23-33) meq/L Anion Gap 7 (5-20) BUN 12 (7-22) mg/dL Creatinine 0.5 (0.50-1.20) mg/dL Estimated GFR BUN/Creatinine Ratio 24.00 H (6-20) Glucose 120 H (78-110) mg/dL Mean Blood Glucose mg/dL Hemoglobin A1c (4.2-6.0) % Calculated Osmolality 286.0 (267-292) mOsm/kg Lactic Acid (0.70-2.10) MMOL/L Calcium 8.2 L (8.7-10.7) mg/dL Magnesium (1.6-2.4) mg/dL Iron (37-170) UG/DL TIBC (265-497) ug/dL % Saturation (14-50) % Ferritin (12.00-336.70) ng/mL Total Bilirubin (0.3-1.2) mg/dL AST (8-39) IU/L ALT (9-52) IU/L Alkaline Phosphatase (38-126) IU/L C-Reactive Protein (0.0-0.9) mg/dL Total Protein (6.1-8.0) g/dL Albumin (3.5-4.8) g/dL Globulin (2.50-4.10) g/dL Albumin/Globulin Ratio (1.3-2.0) mg/g Vitamin B12 (239-931) pg/mL Serum Folate (2.76-20.0) NG/ML TSH (0.2700-4.2000) uIU/mL Free T4 (0.93-1.71) ng/dL Ur Collection Type Urine Color (Y) Urine Clarity (CLEAR) Urine pH (5.0-8.5) Ur Specific [place] (1.005-1.030) Urine Protein (NEG) mg/dl Urine Glucose (UA) (NEG) mg/dL Urine Ketones (NEG) Urine Occult Blood (NEG) Urine Nitrate (NEG) Urine Bilirubin (NEG) Urine Urobilinogen (0.2) EU/dL Ur Leukocyte Esterase (NEG) Ur Culture Indicated? Blood Type Antibody Screen Crossmatch 03/11/17 03/11/17 03/12/17 Range/Units 04:13 04:13 04:40 WBC 7.62 (4.8-10.8) 10^3/uL RBC 3.61 L (4.20-5.40) 10^6/uL Hgb 10.2 L (12.0-16.0) g/dL Hct 31.1 L (37.0-47.0) % MCV 86.1 (81-99) FL MCH 28.3 (27-31) PG MCHC 32.8 L (33-37) g/dL RDW Std Deviation 47.4 (39-50) fL RDW Coeff of [place] 15.4 H (11.5-14.5) % Plt Count 263 (140-350) 10*3/uL MPV 9.2 (7.4-12.2) FL Immature Gran % (Auto) (0-5) % Neut % (Auto) (50-80) % Lymph % (Auto) (10-50) % [place] % (Auto) (5-15) % Eos % (Auto) (0-8) % Baso % (Auto) (0-1) % Immature Gran # (Auto) 10*3/UL Neut # (Auto) 10*3/UL Lymph # (Auto) 10*3/uL [place] # (Auto) (0.3-0.8) 10*3/UL Eos # (Auto) 10*3/UL Baso # (Auto) 10*3/UL WBC Morphology Comment (NORM) Plt Morphology Comment (NORM) RBC Morph Comment (NORM) VBG pH (7.32-7.42) VBG pCO2 (45-55) mmHg VBG HCO3 (22-26) mmol/L VBG Base Excess (-2-2) MMOL/L Sodium 139 (135-145) meq/L Potassium 2.6 L (3.8-5.2) meq/L Chloride 103 (98-112) meq/L Carbon Dioxide 31 (23-33) meq/L Anion Gap 5 (5-20) BUN 10 (7-22) mg/dL Creatinine 0.4 L (0.50-1.20) mg/dL Estimated GFR Brands Editor BUN/Creatinine Ratio 25.00 H (6-20) Glucose 146 H (78-110) mg/dL Mean Blood Glucose mg/dL Hemoglobin A1c (4.2-6.0) % Calculated Osmolality 289.0 (267-292) mOsm/kg Lactic Acid (0.70-2.10) MMOL/L Calcium 8.1 L (8.7-10.7) mg/dL Magnesium 1.7 (1.6-2.4) mg/dL Iron (37-170) UG/DL TIBC (265-497) ug/dL % Saturation (14-50) % Ferritin (12.00-336.70) ng/mL Total Bilirubin (0.3-1.2) mg/dL AST (8-39) IU/L ALT (9-52) IU/L Alkaline Phosphatase (38-126) IU/L C-Reactive Protein (0.0-0.9) mg/dL Total Protein (6.1-8.0) g/dL Albumin (3.5-4.8) g/dL Globulin (2.50-4.10) g/dL Albumin/Globulin Ratio (1.3-2.0) mg/g Vitamin B12 (239-931) pg/mL Serum Folate (2.76-20.0) NG/ML TSH (0.2700-4.2000) uIU/mL Free T4 (0.93-1.71) ng/dL Ur Collection Type Urine Color (Y) Urine Clarity (CLEAR) Urine pH (5.0-8.5) Ur Specific [place] (1.005-1.030) Urine Protein (NEG) mg/dl Urine Glucose (UA) (NEG) mg/dL Urine Ketones (NEG) Urine Occult Blood (NEG) Urine Nitrate (NEG) Urine Bilirubin (NEG) Urine Urobilinogen (0.2) EU/dL Ur Leukocyte Esterase (NEG) Ur Culture Indicated? Blood Type Antibody Screen Crossmatch 03/12/17 03/13/17 03/13/17 Range/Units 04:40 04:23 08:57 WBC (4.8-10.8) 10^3/uL RBC (4.20-5.40) 10^6/uL Hgb (12.0-16.0) g/dL Hct (37.0-47.0) % MCV (81-99) FL MCH (27-31) PG MCHC (33-37) g/dL RDW Std Deviation (39-50) fL RDW Coeff of [place] (11.5-14.5) % Plt Count (140-350) 10*3/uL MPV (7.4-12.2) FL Immature Gran % (Auto) (0-5) % Neut % (Auto) (50-80) % Lymph % (Auto) (10-50) % [place] % (Auto) (5-15) % Eos % (Auto) (0-8) % Baso % (Auto) (0-1) % Immature Gran # (Auto) 10*3/UL Neut # (Auto) 10*3/UL Lymph # (Auto) 10*3/uL [place] # (Auto) (0.3-0.8) 10*3/UL Eos # (Auto) 10*3/UL Baso # (Auto) 10*3/UL WBC Morphology Comment (NORM) Plt Morphology Comment (NORM) RBC Morph Comment (NORM) VBG pH (7.32-7.42) VBG pCO2 (45-55) mmHg VBG HCO3 (22-26) mmol/L VBG Base Excess (-2-2) MMOL/L Sodium 137 141 (135-145) meq/L Potassium 2.4 L* 2.7 L (3.8-5.2) meq/L Chloride 97 L 102 (98-112) meq/L Carbon Dioxide 34 H 31 (23-33) meq/L Anion Gap 6 8 (5-20) BUN 9 10 (7-22) mg/dL Creatinine 0.4 L 0.4 L (0.50-1.20) mg/dL Estimated GFR Brands Editor Br[employer] Editor BUN/Creatinine Ratio 22.50 H 25.00 H (6-20) Glucose 141 H 126 H (78-110) mg/dL Mean Blood Glucose mg/dL Hemoglobin A1c (4.2-6.0) % Calculated Osmolality 284.0 292.0 (267-292) mOsm/kg Lactic Acid (0.70-2.10) MMOL/L Calcium 7.8 L 7.6 L (8.7-10.7) mg/dL Magnesium 1.8 (1.6-2.4) mg/dL Iron (37-170) UG/DL TIBC (265-497) ug/dL % Saturation (14-50) % Ferritin (12.00-336.70) ng/mL Total Bilirubin 0.8 (0.3-1.2) mg/dL AST 39 (8-39) IU/L ALT 40 (9-52) IU/L Alkaline Phosphatase 76 (38-126) IU/L C-Reactive Protein (0.0-0.9) mg/dL Total Protein 5.5 L (6.1-8.0) g/dL Albumin 2.6 L (3.5-4.8) g/dL Globulin 2.9 (2.50-4.10) g/dL Albumin/Globulin Ratio 0.80 L (1.3-2.0) mg/g Vitamin B12 (239-931) pg/mL Serum Folate (2.76-20.0) NG/ML TSH (0.2700-4.2000) uIU/mL Free T4 (0.93-1.71) ng/dL Ur Collection Type Urine Color (Y) Urine Clarity (CLEAR) Urine pH (5.0-8.5) Ur Specific [place] (1.005-1.030) Urine Protein (NEG) mg/dl Urine Glucose (UA) (NEG) mg/dL Urine Ketones (NEG) Urine Occult Blood (NEG) Urine Nitrate (NEG) Urine Bilirubin (NEG) Urine Urobilinogen (0.2) EU/dL Ur Leukocyte Esterase (NEG) Ur Culture Indicated? Blood Type Antibody Screen Crossmatch 03/14/17 03/14/17 Range/Units 07:59 07:59 WBC 7.79 (4.8-10.8) 10^3/uL RBC 3.90 L (4.20-5.40) 10^6/uL Hgb 10.9 L (12.0-16.0) g/dL Hct 33.6 L (37.0-47.0) % MCV 86.2 (81-99) FL MCH 27.9 (27-31) PG MCHC 32.4 L (33-37) g/dL RDW Std Deviation 47.0 (39-50) fL RDW Coeff of [place] 15.1 H (11.5-14.5) % Plt Count 310 (140-350) 10*3/uL MPV 9.0 (7.4-12.2) FL Immature Gran % (Auto) 0.4 (0-5) % Neut % (Auto) 74.8 (50-80) % Lymph % (Auto) 13.2 (10-50) % [place] % (Auto) 9.1 (5-15) % Eos % (Auto) 2.1 (0-8) % Baso % (Auto) 0.4 (0-1) % Immature Gran # (Auto) 0.03 10*3/UL Neut # (Auto) 5.83 10*3/UL Lymph # (Auto) 1.03 10*3/uL [place] # (Auto) 0.71 (0.3-0.8) 10*3/UL Eos # (Auto) 0.16 10*3/UL Baso # (Auto) 0.03 10*3/UL WBC Morphology Comment Normal morphology (NORM) Plt Morphology Comment Normal morphology (NORM) RBC Morph Comment Normal morphology (NORM) VBG pH (7.32-7.42) VBG pCO2 (45-55) mmHg VBG HCO3 (22-26) mmol/L VBG Base Excess (-2-2) MMOL/L Sodium 137 (135-145) meq/L Potassium 3.7 L (3.8-5.2) meq/L Chloride 103 (98-112) meq/L Carbon Dioxide 27 (23-33) meq/L Anion Gap 7 (5-20) BUN 6 L (7-22) mg/dL Creatinine 0.4 L (0.50-1.20) mg/dL Estimated GFR [employer] Editor BUN/Creatinine Ratio 15.00 (6-20) Glucose 125 H (78-110) mg/dL Mean Blood Glucose mg/dL Hemoglobin A1c (4.2-6.0) % Calculated Osmolality 282.0 (267-292) mOsm/kg Lactic Acid (0.70-2.10) MMOL/L Calcium 7.8 L (8.7-10.7) mg/dL Magnesium 2.0 (1.6-2.4) mg/dL Iron (37-170) UG/DL TIBC (265-497) ug/dL % Saturation (14-50) % Ferritin (12.00-336.70) ng/mL Total Bilirubin 0.7 (0.3-1.2) mg/dL AST 53 H (8-39) IU/L ALT 44 (9-52) IU/L Alkaline Phosphatase 83 (38-126) IU/L C-Reactive Protein (0.0-0.9) mg/dL Total Protein 5.9 L (6.1-8.0) g/dL Albumin 2.9 L (3.5-4.8) g/dL Globulin 3.0 (2.50-4.10) g/dL Albumin/Globulin Ratio 0.90 L (1.3-2.0) mg/g Vitamin B12 (239-931) pg/mL Serum Folate (2.76-20.0) NG/ML TSH (0.2700-4.2000) uIU/mL Free T4 (0.93-1.71) ng/dL Ur Collection Type Urine Color (Y) Urine Clarity (CLEAR) Urine pH (5.0-8.5) Ur Specific [place] (1.005-1.030) Urine Protein (NEG) mg/dl Urine Glucose (UA) (NEG) mg/dL Urine Ketones (NEG) Urine Occult Blood (NEG) Urine Nitrate (NEG) Urine Bilirubin (NEG) Urine Urobilinogen (0.2) EU/dL Ur Leukocyte Esterase (NEG) Ur Culture Indicated? Blood Type Antibody Screen Crossmatch Objective : Exam - General General Appearance: No Acute Distress, Thin Additional General Exam Details: Vital Signs (24 hrs) Temp Pulse Pulse Pulse Resp BP BP 03/15/17 16:35 97.2 F 73 16 148/78 03/15/17 11:10 97.7 F 88 20 188/104 03/15/17 07:08 97 F 87 22 171/107 03/15/17 07:00 74 03/15/17 05:00 96.4 F L 69 20 163/75 03/15/17 04:47 03/15/17 01:00 96.8 F 73 20 03/14/17 21:00 97.4 F 72 72 18 174/88 174/88 03/14/17 19:00 68 BP Pulse Ox 03/15/17 16:35 94 03/15/17 11:10 92 03/15/17 07:08 96 03/15/17 07:00 03/15/17 05:00 96 03/15/17 04:47 96 03/15/17 01:00 181/92 95 03/14/17 21:00 96 03/14/17 19:00 - Eye Eye Exam: No Scleral Icterus - ENT ENT Exam: Mucous Membranes Moist - Respiratory Respiratory Exam: Clear to Auscultation - Bilaterally, Breathing Non Labored - Cardiovascular Cardiovascular Exam: RRR, No Murmur, No Clicks, No Gallops, No Rubs, No JVD - GI/Abdominal GI/Abdominal Exam: Normal Bowel Sounds, Non Tender, Non Distended, Soft - Extremities Extremities Exam: No Clubbing Present, No Edema Present, No Cyanosis Present Additional Extremities Exam Details: The right hip is dressed, dressing has what appears to be a some sort of suction application dressing. No erythema. No drainage. - Neurological Neurological Exam: Alert, No Facial Droop, Speech Intact / Clear Additional Neurological Exam Details: patient is quite altered from her dementia. She was only able to answer that she had pain. She could not locate where she had pain. She did not answer any other questions. - Psychiatric Psychiatric Exam: Anxious Assessment and Plan - Patient Problems (1) Hip fracture, right Current Visit: Yes Status: Acute Code(s): S72.001A - Fracture of unspecified part of neck of right femur, initial encounter for closed fracture Qualifiers: Encounter type: subsequent encounter Fracture type: closed Fracture healing: with routine healing Qualified Code(s): S72.001D - Fracture of unspecified part of neck of right femur, subsequent encounter for closed fracture with routine healing (2) Diabetes mellitus Current Visit: Yes Status: Acute Code(s): E11.9 - Type 2 diabetes mellitus without complications Qualifiers: Diabetes mellitus type: type 2 Diabetes mellitus complication status: without complication Diabetes mellitus fci insulin use: unspecified fci insulin use status Qualified Code(s): E11.9 - Type 2 diabetes mellitus without complications (3) Alzheimer disease Current Visit: Yes Status: Chronic Code(s): G30.9 - Alzheimer's disease, unspecified Qualifiers: Alzheimer's disease onset: late-onset Dementia behavioral disturbance: without behavioral disturbance Qualified Code(s): G30.1 - Alzheimer's disease with late onset; F02.80 - Dementia in other diseases classified elsewhere without behavioral disturbance; F02.80 - Dementia in other diseases classified elsewhere without behavioral disturbance; F02.80 - Dementia in other diseases classified elsewhere without behavioral disturbance (4) Hypothyroidism Current Visit: Yes Status: Acute Code(s): E03.9 - Hypothyroidism, unspecified Qualifiers: Hypothyroidism type: acquired Qualified Code(s): E03.9 - Hypothyroidism, unspecified (5) Hypertension Current Visit: Yes Status: Acute Code(s): I10 - Essential (primary) hypertension Qualifiers: Hypertension type: essential hypertension Qualified Code(s): I10 - Essential (primary) hypertension (6) Hypokalemia Current Visit: Yes Status: Acute Code(s): E87.6 - Hypokalemia (7) Low iron Current Visit: Yes Status: Acute Code(s): E61.1 - Iron deficiency (8) Low vitamin B12 level Current Visit: Yes Status: Acute Code(s): E53.8 - Deficiency of other specified B group vitamins (9) Hypomagnesemia Current Visit: Yes Status: Acute Code(s): E83.42 - Hypomagnesemia - Assessment / Plan Additional Assessment/Plan Details: Continue electrolyte replacement with magnesium, potassium, multivitamin. B12 replacement. I will eliminate several medications to avoid worsened delirium on dementia. Without IV access, I think at this point we will continue with by mouth replacement as best as possible. Once the dressing is changed and the patient no longer has any suction component to this, I think the patient would be okay to return to [facility] for continued care. retirement prognosis is poor. It is not likely this patient will be able to comply with therapy based on her underlying past history. I will check labs tomorrow.
[2017-03-16] MEDS: HYDROcodone-APAP 5 MG -325 MG TABLET PO PRN ×2 (02:15→09:55)
[2017-03-16] MEDS: LEVOTHYROXINE 88 MCG TABLET PO SCH (05:14)
[2017-03-16 05:38] LABS: Hematocrit [HCT] 35.9 % (37.0-47.0); Hemoglobin [HGB] 11.7 g/dL (12.0-16.0); MEAN CORPUSCULAR HEMOGLOBIN 27.9 PG (27-31); MEAN CORPUSCULAR HGB CONC 32.6 g/dL (33-37); MEAN CORPUSCULAR VOLUME 85.7 FL (81-99); MEAN PLATELET VOLUME 9.4 FL (7.4-12.2); RED BLOOD COUNT 4.19 10^6/uL (4.20-5.40)
[2017-03-16 05:57] LABS: BLOOD UREA NITROGEN 8 mg/dL (7-22)
[2017-03-16] MEDS ORDERED: Multivitamin Tab 1 TAB PO SCH (09:00)
[2017-03-16] MEDS: POTASSIUM CHLORIDE 20 MEQ TAB PO SCH (09:10)
[2017-03-16] MEDS: DOCUSATE 100 MG CAPSULE PO SCH (09:10)
[2017-03-16] MEDS: FOLIC ACID 1 MG TABLET PO SCH (09:11)
[2017-03-16] MEDS: FERROUS GLUCONATE 324 MG TABLET PO SCH (09:11)
[2017-03-16] MEDS: ASPIRIN 325 MG EC TABLET PO SCH (09:11)
[2017-03-16 11:56] VITALS: BP 150/77; RESP 20; TEMP 97; O2SAT 97
--- NOTE | 2017-03-16 12:16 | PT AM DAY ---
Diagnosis : Right Total Hip Arthroplasty AM - Physical Therapy S: The patient was more alert today and was agreeable to participate with therapy downstairs. The therapist spoke with nursing and they state the patient had a very rough night last night and didn't get a lot of sleep. O: Today's therapy consisted of the patient requiring max assistance x1 for stand pivot transfer to the wheelchair. The patient was wheeled downstairs to therapy where she performed therapeutic exercises and functional activities including long arc quads with tactile cues, seated marching, heel raises, and red theraband rows and shoulder abduction. She also performed sit to stands x3. The patient ambulated with moderate assistance x2 and gait belt with bilateral hand hold assistance 10 feet x1 and 25 feet x1. A: The patient performs ambulatory activities much better with two people; although very little actual assistance was needed. This was relayed to the nursing staff. P: Continue seeing patient BID during the week and one time per day over the weekend for transfers, ambulation, and range of motion/strengthening exercises. BRAD
--- NOTE | 2017-03-16 12:32 | DCSUMMARY ---
Hospitalization Summary Admit Date: 03/07/17 Discharge Date: 03/16/17 Primary Diagnosis:: right hip fracture status post ORIF Hospital Course: This is a 76-year-old female that resides at [facility]. She was found after a fall and was sent in and found to have a right hip fracture. It was a closed fracture. The patient went for open reduction and internal fixation. See Dr. Yang's surgical note for that procedure resolved. The patient's postoperative course was slow down by dementia that was quite advanced. Is very difficult to administer medications. We also found several abnormalities that needed correcting including hypomagnesemia, hypokalemia, and low iron. The patient is known to be noncompliant with medical therapy due to her advanced dementia and so she has underlying hypothyroidism that is difficult to treat as well. We will keep her dose of Synthroid the same. The patient did have waxing and waning levels of alertness consistent with delirium on top of her dementia that has resolved. She is probably at her mental baseline state. At this time, she'll be discharged back to [facility] for continued therapy post hip fracture and resumption of long-term care there. Given the risk of bleeding in this patient, aspirin is being utilized for DVT prophylaxis. Patient is on iron and I would like her to remain on iron and aspirin for at least the next 30 days and this can be discontinued. Lisset should be removed on 03/19/2017. Follow-up with Dr. Yang should be scheduled in one week. It is not possible to obtain history from this patient due to her dementia. Assessment and Plan: 1. As per discharge assessments noted 2. Disposition: Patient is discharged back to [facility]. 3. Condition on discharge, stable and improved. 4. Diet: regular diet 5. Activities: resume normal activities and as per physical therapy 6. Follow-Up: 1. Dr. Caballero and Moni Rondon to resume care. 2. 7. Medications at the Time of Discharge: Home Medications Medication Instructions Recorded Confirmed Type Levothyroxine Sodium 75 mcg PO DAILY 03/07/17 03/07/17 History Acetaminophen [Tylenol] 650 mg PO Q6H PRN tab 03/16/17 Rx Aspirin EC 325 mg PO BID tab 03/16/17 Rx Ferrous Gluconate [Fergon] 324 mg PO DAILY tab 03/16/17 Rx Folic Acid 1 mg PO DAILY tab 03/16/17 Rx HYDROcodone/APAP 5/325 Tab [[place] 1 tab PO BID PRN #30 tab 03/16/17 Rx 5/325 Tab] Multivitamin Tab [Thera Tab] 1 tab PO DAILY tab 03/16/17 Rx 8. Time, care, counseling and coordination of care for this discharge is greater than 30 minutes. Exam - Vitals Vital Signs: Vital Signs Vital Signs - Last Taken Temperature 97 F 03/16/17 11:55 Pulse Rate 90 03/16/17 11:55 Respiratory Rate 20 03/16/17 11:55 Blood Pressure 150/77 03/16/17 11:55 Pulse Ox 97 03/16/17 11:55 Height 4 ft 11 in Weight 117 lb 3.2 oz - General General Appearance: No Acute Distress - Eye Eye Exam: POSITIVE: No Scleral Icterus - ENT ENT Exam: POSITIVE: Mucous Membranes Moist - Respiratory Respiratory Exam: POSITIVE: Clear to Auscultation - Bilaterally, Breathing Non Labored - Cardiovascular Cardiovascular Exam: POSITIVE: RRR, No Murmur, No Clicks, No Gallops, No Rubs, No JVD - GI/Abdominal GI/Abdominal Exam: POSITIVE: Normal Bowel Sounds, Non Tender, Non Distended, Soft - Extremities Extremities Exam: POSITIVE: No Clubbing Present, No Edema Present, No Cyanosis Present Additional Extremities Exam Details: Incision is clean, dry, intact. Dressed with Silvadene currently. - Neurological Neurological Exam: POSITIVE: Alert, No Facial Droop, Speech Intact / Clear, Moves All Extremities Equally, Altered (Demented) Data Perinent Studies: Laboratory Results 03/07/17 03/07/17 03/07/17 Range/Units 11:05 11:26 11:31 WBC 13.81 H (4.8-10.8) 10^3/uL RBC 3.60 L (4.20-5.40) 10^6/uL Hgb 10.6 L (12.0-16.0) g/dL Hct 32.9 L (37.0-47.0) % MCV 91.4 (81-99) FL MCH 29.4 (27-31) PG MCHC 32.2 L (33-37) g/dL RDW Std Deviation 47.2 (39-50) fL RDW Coeff of Carlota 14.8 H (11.5-14.5) % Plt Count 390 H (140-350) 10*3/uL MPV 9.0 (7.4-12.2) FL Immature Gran % (Auto) 0.4 (0-5) % Neut % (Auto) 87.5 H (50-80) % Lymph % (Auto) 4.3 L (10-50) % [place] % (Auto) 7.6 (5-15) % Eos % (Auto) 0 (0-8) % Baso % (Auto) 0.2 (0-1) % Immature Gran # (Auto) 0.06 10*3/UL Neut # (Auto) 12.07 10*3/UL Lymph # (Auto) 0.60 10*3/uL [place] # (Auto) 1.05 H (0.3-0.8) 10*3/UL Eos # (Auto) 0 10*3/UL Baso # (Auto) 0.03 10*3/UL WBC Morphology Comment See comments (NORM) Plt Morphology Comment Normal morphology (NORM) RBC Morph Comment Normal morphology (NORM) VBG pH 7.38 (7.32-7.42) VBG pCO2 41 L (45-55) mmHg VBG HCO3 24 (22-26) mmol/L VBG Base Excess -1 (-2-2) MMOL/L Sodium 137 (135-145) meq/L Potassium 4.0 (3.8-5.2) meq/L Chloride 98 (98-112) meq/L Carbon Dioxide 22 L (23-33) meq/L Anion Gap 17 (5-20) BUN 19 (7-22) mg/dL Creatinine 0.6 (0.50-1.20) mg/dL Estimated GFR BUN/Creatinine Ratio 31.66 H (6-20) Glucose 341 H (78-110) mg/dL Mean Blood Glucose mg/dL Hemoglobin A1c (4.2-6.0) % Calculated Osmolality 298.0 H (267-292) mOsm/kg Lactic Acid 4.3 H (0.70-2.10) MMOL/L Calcium 9.4 (8.7-10.7) mg/dL Magnesium (1.6-2.4) mg/dL Iron (37-170) UG/DL TIBC (265-497) ug/dL % Saturation (14-50) % Ferritin (12.00-336.70) ng/mL Total Bilirubin 0.7 (0.3-1.2) mg/dL AST 35 (8-39) IU/L ALT 37 (9-52) IU/L Alkaline Phosphatase 92 (38-126) IU/L C-Reactive Protein 0.5 (0.0-0.9) mg/dL Total Protein 7.3 (6.1-8.0) g/dL Albumin 4.1 (3.5-4.8) g/dL Globulin 3.2 (2.50-4.10) g/dL Albumin/Globulin Ratio 1.20 L (1.3-2.0) mg/g Vitamin B12 (239-931) pg/mL Serum Folate (2.76-20.0) NG/ML TSH (0.2700-4.2000) uIU/mL Free T4 (0.93-1.71) ng/dL Ur Collection Type Urine Color (Y) Urine Clarity (CLEAR) Urine pH (5.0-8.5) Ur Specific [place] (1.005-1.030) Urine Protein (NEG) mg/dl Urine Glucose (UA) (NEG) mg/dL Urine Ketones (NEG) Urine Occult Blood (NEG) Urine Nitrate (NEG) Urine Bilirubin (NEG) Urine Urobilinogen (0.2) EU/dL Ur Leukocyte Esterase (NEG) Ur Culture Indicated? Blood Type Antibody Screen Crossmatch 03/07/17 03/07/17 03/08/17 Range/Units 12:14 17:24 04:20 WBC 8.22 (4.8-10.8) 10^3/uL RBC 3.37 L (4.20-5.40) 10^6/uL Hgb 10.0 L (12.0-16.0) g/dL Hct 30.5 L (37.0-47.0) % MCV 90.5 (81-99) FL MCH 29.7 (27-31) PG MCHC 32.8 L (33-37) g/dL RDW Std Deviation 46.9 (39-50) fL RDW Coeff of Carlota 14.7 H (11.5-14.5) % Plt Count 330 (140-350) 10*3/uL MPV 9.0 (7.4-12.2) FL Immature Gran % (Auto) 0.2 (0-5) % Neut % (Auto) 79.9 (50-80) % Lymph % (Auto) 9.0 L (10-50) % [place] % (Auto) 10.6 (5-15) % Eos % (Auto) 0.2 (0-8) % Baso % (Auto) 0.1 (0-1) % Immature Gran # (Auto) 0.02 10*3/UL Neut # (Auto) 6.56 10*3/UL Lymph # (Auto) 0.74 10*3/uL [place] # (Auto) 0.87 H (0.3-0.8) 10*3/UL Eos # (Auto) 0.02 10*3/UL Baso # (Auto) 0.01 10*3/UL WBC Morphology Comment Normal morphology (NORM) Plt Morphology Comment Normal morphology (NORM) RBC Morph Comment Normal morphology (NORM) VBG pH (7.32-7.42) VBG pCO2 (45-55) mmHg VBG HCO3 (22-26) mmol/L VBG Base Excess (-2-2) MMOL/L Sodium (135-145) meq/L Potassium (3.8-5.2) meq/L Chloride (98-112) meq/L Carbon Dioxide (23-33) meq/L Anion Gap (5-20) BUN (7-22) mg/dL Creatinine (0.50-1.20) mg/dL Estimated GFR BUN/Creatinine Ratio (6-20) Glucose (78-110) mg/dL Mean Blood Glucose mg/dL Hemoglobin A1c (4.2-6.0) % Calculated Osmolality (267-292) mOsm/kg Lactic Acid (0.70-2.10) MMOL/L Calcium (8.7-10.7) mg/dL Magnesium (1.6-2.4) mg/dL Iron (37-170) UG/DL TIBC (265-497) ug/dL % Saturation (14-50) % Ferritin (12.00-336.70) ng/mL Total Bilirubin (0.3-1.2) mg/dL AST (8-39) IU/L ALT (9-52) IU/L Alkaline Phosphatase (38-126) IU/L C-Reactive Protein (0.0-0.9) mg/dL Total Protein (6.1-8.0) g/dL Albumin (3.5-4.8) g/dL Globulin (2.50-4.10) g/dL Albumin/Globulin Ratio (1.3-2.0) mg/g Vitamin B12 (239-931) pg/mL Serum Folate (2.76-20.0) NG/ML TSH 8.44 H (0.2700-4.2000) uIU/mL Free T4 1.31 (0.93-1.71) ng/dL Ur Collection Type Cath specimen Urine Color Yellow (Y) Urine Clarity Clear (CLEAR) Urine pH 7.0 (5.0-8.5) Ur Specific [place] 1.020 (1.005-1.030) Urine Protein Negative (NEG) mg/dl Urine Glucose (UA) 500 (NEG) mg/dL Urine Ketones Negative (NEG) Urine Occult Blood Negative (NEG) Urine Nitrate Negative (NEG) Urine Bilirubin Negative (NEG) Urine Urobilinogen 1.0 (0.2) EU/dL Ur Leukocyte Esterase Negative (NEG) Ur Culture Indicated? Culture not set Blood Type Antibody Screen Crossmatch 03/08/17 03/08/17 03/08/17 Range/Units 04:20 04:20 07:15 WBC (4.8-10.8) 10^3/uL RBC (4.20-5.40) 10^6/uL Hgb (12.0-16.0) g/dL Hct (37.0-47.0) % MCV (81-99) FL MCH (27-31) PG MCHC (33-37) g/dL RDW Std Deviation (39-50) fL RDW Coeff of Carlota (11.5-14.5) % Plt Count (140-350) 10*3/uL MPV (7.4-12.2) FL Immature Gran % (Auto) (0-5) % Neut % (Auto) (50-80) % Lymph % (Auto) (10-50) % [place] % (Auto) (5-15) % Eos % (Auto) (0-8) % Baso % (Auto) (0-1) % Immature Gran # (Auto) 10*3/UL Neut # (Auto) 10*3/UL Lymph # (Auto) 10*3/uL [place] # (Auto) (0.3-0.8) 10*3/UL Eos # (Auto) 10*3/UL Baso # (Auto) 10*3/UL WBC Morphology Comment (NORM) Plt Morphology Comment (NORM) RBC Morph Comment (NORM) VBG pH (7.32-7.42) VBG pCO2 (45-55) mmHg VBG HCO3 (22-26) mmol/L VBG Base Excess (-2-2) MMOL/L Sodium 139 (135-145) meq/L Potassium 3.9 (3.8-5.2) meq/L Chloride 102 (98-112) meq/L Carbon Dioxide 27 (23-33) meq/L Anion Gap 10 (5-20) BUN 16 (7-22) mg/dL Creatinine 0.5 (0.50-1.20) mg/dL Estimated GFR BUN/Creatinine Ratio 32.00 H (6-20) Glucose 144 H (78-110) mg/dL Mean Blood Glucose 109.138 mg/dL Hemoglobin A1c 5.86 (4.2-6.0) % Calculated Osmolality 291.0 (267-292) mOsm/kg Lactic Acid (0.70-2.10) MMOL/L Calcium 9.1 (8.7-10.7) mg/dL Magnesium (1.6-2.4) mg/dL Iron (37-170) UG/DL TIBC (265-497) ug/dL % Saturation (14-50) % Ferritin (12.00-336.70) ng/mL Total Bilirubin (0.3-1.2) mg/dL AST (8-39) IU/L ALT (9-52) IU/L Alkaline Phosphatase (38-126) IU/L C-Reactive Protein (0.0-0.9) mg/dL Total Protein (6.1-8.0) g/dL Albumin (3.5-4.8) g/dL Globulin (2.50-4.10) g/dL Albumin/Globulin Ratio (1.3-2.0) mg/g Vitamin B12 (239-931) pg/mL Serum Folate (2.76-20.0) NG/ML TSH (0.2700-4.2000) uIU/mL Free T4 (0.93-1.71) ng/dL Ur Collection Type Urine Color (Y) Urine Clarity (CLEAR) Urine pH (5.0-8.5) Ur Specific [place] (1.005-1.030) Urine Protein (NEG) mg/dl Urine Glucose (UA) (NEG) mg/dL Urine Ketones (NEG) Urine Occult Blood (NEG) Urine Nitrate (NEG) Urine Bilirubin (NEG) Urine Urobilinogen (0.2) EU/dL Ur Leukocyte Esterase (NEG) Ur Culture Indicated? Blood Type A POSITIVE Antibody Screen Negative Crossmatch See Detail 03/09/17 03/09/17 03/09/17 Range/Units 04:20 04:20 04:20 WBC (4.8-10.8) 10^3/uL RBC (4.20-5.40) 10^6/uL Hgb (12.0-16.0) g/dL Hct (37.0-47.0) % MCV (81-99) FL MCH (27-31) PG MCHC (33-37) g/dL RDW Std Deviation (39-50) fL RDW Coeff of [place] (11.5-14.5) % Plt Count (140-350) 10*3/uL MPV (7.4-12.2) FL Immature Gran % (Auto) (0-5) % Neut % (Auto) (50-80) % Lymph % (Auto) (10-50) % [place] % (Auto) (5-15) % Eos % (Auto) (0-8) % Baso % (Auto) (0-1) % Immature Gran # (Auto) 10*3/UL Neut # (Auto) 10*3/UL Lymph # (Auto) 10*3/uL [place] # (Auto) (0.3-0.8) 10*3/UL Eos # (Auto) 10*3/UL Baso # (Auto) 10*3/UL WBC Morphology Comment (NORM) Plt Morphology Comment (NORM) RBC Morph Comment (NORM) VBG pH (7.32-7.42) VBG pCO2 (45-55) mmHg VBG HCO3 (22-26) mmol/L VBG Base Excess (-2-2) MMOL/L Sodium (135-145) meq/L Potassium (3.8-5.2) meq/L Chloride (98-112) meq/L Carbon Dioxide (23-33) meq/L Anion Gap (5-20) BUN (7-22) mg/dL Creatinine (0.50-1.20) mg/dL Estimated GFR BUN/Creatinine Ratio (6-20) Glucose (78-110) mg/dL Mean Blood Glucose mg/dL Hemoglobin A1c (4.2-6.0) % Calculated Osmolality (267-292) mOsm/kg Lactic Acid (0.70-2.10) MMOL/L Calcium (8.7-10.7) mg/dL Magnesium (1.6-2.4) mg/dL Iron 18 L (37-170) UG/DL TIBC 261 L (265-497) ug/dL % Saturation 6.9 L (14-50) % Ferritin 136.00 (12.00-336.70) ng/mL Total Bilirubin (0.3-1.2) mg/dL AST (8-39) IU/L ALT (9-52) IU/L Alkaline Phosphatase (38-126) IU/L C-Reactive Protein (0.0-0.9) mg/dL Total Protein (6.1-8.0) g/dL Albumin (3.5-4.8) g/dL Globulin (2.50-4.10) g/dL Albumin/Globulin Ratio (1.3-2.0) mg/g Vitamin B12 411 (239-931) pg/mL Serum Folate 13.8 (2.76-20.0) NG/ML TSH (0.2700-4.2000) uIU/mL Free T4 (0.93-1.71) ng/dL Ur Collection Type Urine Color (Y) Urine Clarity (CLEAR) Urine pH (5.0-8.5) Ur Specific [place] (1.005-1.030) Urine Protein (NEG) mg/dl Urine Glucose (UA) (NEG) mg/dL Urine Ketones (NEG) Urine Occult Blood (NEG) Urine Nitrate (NEG) Urine Bilirubin (NEG) Urine Urobilinogen (0.2) EU/dL Ur Leukocyte Esterase (NEG) Ur Culture Indicated? Blood Type Antibody Screen Crossmatch 03/10/17 03/10/17 03/11/17 Range/Units 04:38 04:38 04:13 WBC 7.17 7.79 (4.8-10.8) 10^3/uL RBC 3.46 L 3.42 L (4.20-5.40) 10^6/uL Hgb 9.9 L 9.7 L (12.0-16.0) g/dL Hct 30.2 L 29.7 L (37.0-47.0) % MCV 87.3 86.8 (81-99) FL MCH 28.6 28.4 (27-31) PG MCHC 32.8 L 32.7 L (33-37) g/dL RDW Std Deviation 52.3 H 49.5 (39-50) fL RDW Coeff of [place] 16.9 H 15.9 H (11.5-14.5) % Plt Count 249 243 (140-350) 10*3/uL MPV 9.2 9.4 (7.4-12.2) FL Immature Gran % (Auto) (0-5) % Neut % (Auto) (50-80) % Lymph % (Auto) (10-50) % [place] % (Auto) (5-15) % Eos % (Auto) (0-8) % Baso % (Auto) (0-1) % Immature Gran # (Auto) 10*3/UL Neut # (Auto) 10*3/UL Lymph # (Auto) 10*3/uL [place] # (Auto) (0.3-0.8) 10*3/UL Eos # (Auto) 10*3/UL Baso # (Auto) 10*3/UL WBC Morphology Comment (NORM) Plt Morphology Comment (NORM) RBC Morph Comment (NORM) VBG pH (7.32-7.42) VBG pCO2 (45-55) mmHg VBG HCO3 (22-26) mmol/L VBG Base Excess (-2-2) MMOL/L Sodium 138 (135-145) meq/L Potassium 3.2 L (3.8-5.2) meq/L Chloride 102 (98-112) meq/L Carbon Dioxide 29 (23-33) meq/L Anion Gap 7 (5-20) BUN 12 (7-22) mg/dL Creatinine 0.5 (0.50-1.20) mg/dL Estimated GFR BUN/Creatinine Ratio 24.00 H (6-20) Glucose 120 H (78-110) mg/dL Mean Blood Glucose mg/dL Hemoglobin A1c (4.2-6.0) % Calculated Osmolality 286.0 (267-292) mOsm/kg Lactic Acid (0.70-2.10) MMOL/L Calcium 8.2 L (8.7-10.7) mg/dL Magnesium (1.6-2.4) mg/dL Iron (37-170) UG/DL TIBC (265-497) ug/dL % Saturation (14-50) % Ferritin (12.00-336.70) ng/mL Total Bilirubin (0.3-1.2) mg/dL AST (8-39) IU/L ALT (9-52) IU/L Alkaline Phosphatase (38-126) IU/L C-Reactive Protein (0.0-0.9) mg/dL Total Protein (6.1-8.0) g/dL Albumin (3.5-4.8) g/dL Globulin (2.50-4.10) g/dL Albumin/Globulin Ratio (1.3-2.0) mg/g Vitamin B12 (239-931) pg/mL Serum Folate (2.76-20.0) NG/ML TSH (0.2700-4.2000) uIU/mL Free T4 (0.93-1.71) ng/dL Ur Collection Type Urine Color (Y) Urine Clarity (CLEAR) Urine pH (5.0-8.5) Ur Specific [place] (1.005-1.030) Urine Protein (NEG) mg/dl Urine Glucose (UA) (NEG) mg/dL Urine Ketones (NEG) Urine Occult Blood (NEG) Urine Nitrate (NEG) Urine Bilirubin (NEG) Urine Urobilinogen (0.2) EU/dL Ur Leukocyte Esterase (NEG) Ur Culture Indicated? Blood Type Antibody Screen Crossmatch 03/11/17 03/11/17 03/12/17 Range/Units 04:13 04:13 04:40 WBC 7.62 (4.8-10.8) 10^3/uL RBC 3.61 L (4.20-5.40) 10^6/uL Hgb 10.2 L (12.0-16.0) g/dL Hct 31.1 L (37.0-47.0) % MCV 86.1 (81-99) FL MCH 28.3 (27-31) PG MCHC 32.8 L (33-37) g/dL RDW Std Deviation 47.4 (39-50) fL RDW Coeff of [place] 15.4 H (11.5-14.5) % Plt Count 263 (140-350) 10*3/uL MPV 9.2 (7.4-12.2) FL Immature Gran % (Auto) (0-5) % Neut % (Auto) (50-80) % Lymph % (Auto) (10-50) % [place] % (Auto) (5-15) % Eos % (Auto) (0-8) % Baso % (Auto) (0-1) % Immature Gran # (Auto) 10*3/UL Neut # (Auto) 10*3/UL Lymph # (Auto) 10*3/uL [place] # (Auto) (0.3-0.8) 10*3/UL Eos # (Auto) 10*3/UL Baso # (Auto) 10*3/UL WBC Morphology Comment (NORM) Plt Morphology Comment (NORM) RBC Morph Comment (NORM) VBG pH (7.32-7.42) VBG pCO2 (45-55) mmHg VBG HCO3 (22-26) mmol/L VBG Base Excess (-2-2) MMOL/L Sodium 139 (135-145) meq/L Potassium 2.6 L (3.8-5.2) meq/L Chloride 103 (98-112) meq/L Carbon Dioxide 31 (23-33) meq/L Anion Gap 5 (5-20) BUN 10 (7-22) mg/dL Creatinine 0.4 L (0.50-1.20) mg/dL Estimated GFR Ship Loader BUN/Creatinine Ratio 25.00 H (6-20) Glucose 146 H (78-110) mg/dL Mean Blood Glucose mg/dL Hemoglobin A1c (4.2-6.0) % Calculated Osmolality 289.0 (267-292) mOsm/kg Lactic Acid (0.70-2.10) MMOL/L Calcium 8.1 L (8.7-10.7) mg/dL Magnesium 1.7 (1.6-2.4) mg/dL Iron (37-170) UG/DL TIBC (265-497) ug/dL % Saturation (14-50) % Ferritin (12.00-336.70) ng/mL Total Bilirubin (0.3-1.2) mg/dL AST (8-39) IU/L ALT (9-52) IU/L Alkaline Phosphatase (38-126) IU/L C-Reactive Protein (0.0-0.9) mg/dL Total Protein (6.1-8.0) g/dL Albumin (3.5-4.8) g/dL Globulin (2.50-4.10) g/dL Albumin/Globulin Ratio (1.3-2.0) mg/g Vitamin B12 (239-931) pg/mL Serum Folate (2.76-20.0) NG/ML TSH (0.2700-4.2000) uIU/mL Free T4 (0.93-1.71) ng/dL Ur Collection Type Urine Color (Y) Urine Clarity (CLEAR) Urine pH (5.0-8.5) Ur Specific [place] (1.005-1.030) Urine Protein (NEG) mg/dl Urine Glucose (UA) (NEG) mg/dL Urine Ketones (NEG) Urine Occult Blood (NEG) Urine Nitrate (NEG) Urine Bilirubin (NEG) Urine Urobilinogen (0.2) EU/dL Ur Leukocyte Esterase (NEG) Ur Culture Indicated? Blood Type Antibody Screen Crossmatch 03/12/17 03/13/17 03/13/17 Range/Units 04:40 04:23 08:57 WBC (4.8-10.8) 10^3/uL RBC (4.20-5.40) 10^6/uL Hgb (12.0-16.0) g/dL Hct (37.0-47.0) % MCV (81-99) FL MCH (27-31) PG MCHC (33-37) g/dL RDW Std Deviation (39-50) fL RDW Coeff of [place] (11.5-14.5) % Plt Count (140-350) 10*3/uL MPV (7.4-12.2) FL Immature Gran % (Auto) (0-5) % Neut % (Auto) (50-80) % Lymph % (Auto) (10-50) % [place] % (Auto) (5-15) % Eos % (Auto) (0-8) % Baso % (Auto) (0-1) % Immature Gran # (Auto) 10*3/UL Neut # (Auto) 10*3/UL Lymph # (Auto) 10*3/uL [place] # (Auto) (0.3-0.8) 10*3/UL Eos # (Auto) 10*3/UL Baso # (Auto) 10*3/UL WBC Morphology Comment (NORM) Plt Morphology Comment (NORM) RBC Morph Comment (NORM) VBG pH (7.32-7.42) VBG pCO2 (45-55) mmHg VBG HCO3 (22-26) mmol/L VBG Base Excess (-2-2) MMOL/L Sodium 137 141 (135-145) meq/L Potassium 2.4 L* 2.7 L (3.8-5.2) meq/L Chloride 97 L 102 (98-112) meq/L Carbon Dioxide 34 H 31 (23-33) meq/L Anion Gap 6 8 (5-20) BUN 9 10 (7-22) mg/dL Creatinine 0.4 L 0.4 L (0.50-1.20) mg/dL Estimated GFR Ship Loader Ship Loader BUN/Creatinine Ratio 22.50 H 25.00 H (6-20) Glucose 141 H 126 H (78-110) mg/dL Mean Blood Glucose mg/dL Hemoglobin A1c (4.2-6.0) % Calculated Osmolality 284.0 292.0 (267-292) mOsm/kg Lactic Acid (0.70-2.10) MMOL/L Calcium 7.8 L 7.6 L (8.7-10.7) mg/dL Magnesium 1.8 (1.6-2.4) mg/dL Iron (37-170) UG/DL TIBC (265-497) ug/dL % Saturation (14-50) % Ferritin (12.00-336.70) ng/mL Total Bilirubin 0.8 (0.3-1.2) mg/dL AST 39 (8-39) IU/L ALT 40 (9-52) IU/L Alkaline Phosphatase 76 (38-126) IU/L C-Reactive Protein (0.0-0.9) mg/dL Total Protein 5.5 L (6.1-8.0) g/dL Albumin 2.6 L (3.5-4.8) g/dL Globulin 2.9 (2.50-4.10) g/dL Albumin/Globulin Ratio 0.80 L (1.3-2.0) mg/g Vitamin B12 (239-931) pg/mL Serum Folate (2.76-20.0) NG/ML TSH (0.2700-4.2000) uIU/mL Free T4 (0.93-1.71) ng/dL Ur Collection Type Urine Color (Y) Urine Clarity (CLEAR) Urine pH (5.0-8.5) Ur Specific [place] (1.005-1.030) Urine Protein (NEG) mg/dl Urine Glucose (UA) (NEG) mg/dL Urine Ketones (NEG) Urine Occult Blood (NEG) Urine Nitrate (NEG) Urine Bilirubin (NEG) Urine Urobilinogen (0.2) EU/dL Ur Leukocyte Esterase (NEG) Ur Culture Indicated? Blood Type Antibody Screen Crossmatch 03/14/17 03/14/17 03/16/17 Range/Units 07:59 07:59 04:15 WBC 7.79 9.35 (4.8-10.8) 10^3/uL RBC 3.90 L 4.19 L (4.20-5.40) 10^6/uL Hgb 10.9 L 11.7 L (12.0-16.0) g/dL Hct 33.6 L 35.9 L (37.0-47.0) % MCV 86.2 85.7 (81-99) FL MCH 27.9 27.9 (27-31) PG MCHC 32.4 L 32.6 L (33-37) g/dL RDW Std Deviation 47.0 47.7 (39-50) fL RDW Coeff of Carlota 15.1 H 15.4 H (11.5-14.5) % Plt Count 310 372 H (140-350) 10*3/uL MPV 9.0 9.4 (7.4-12.2) FL Immature Gran % (Auto) 0.4 (0-5) % Neut % (Auto) 74.8 (50-80) % Lymph % (Auto) 13.2 (10-50) % [place] % (Auto) 9.1 (5-15) % Eos % (Auto) 2.1 (0-8) % Baso % (Auto) 0.4 (0-1) % Immature Gran # (Auto) 0.03 10*3/UL Neut # (Auto) 5.83 10*3/UL Lymph # (Auto) 1.03 10*3/uL [place] # (Auto) 0.71 (0.3-0.8) 10*3/UL Eos # (Auto) 0.16 10*3/UL Baso # (Auto) 0.03 10*3/UL WBC Morphology Comment Normal morphology (NORM) Plt Morphology Comment Normal morphology (NORM) RBC Morph Comment Normal morphology (NORM) VBG pH (7.32-7.42) VBG pCO2 (45-55) mmHg VBG HCO3 (22-26) mmol/L VBG Base Excess (-2-2) MMOL/L Sodium 137 (135-145) meq/L Potassium 3.7 L (3.8-5.2) meq/L Chloride 103 (98-112) meq/L Carbon Dioxide 27 (23-33) meq/L Anion Gap 7 (5-20) BUN 6 L (7-22) mg/dL Creatinine 0.4 L (0.50-1.20) mg/dL Estimated GFR [employer] BUN/Creatinine Ratio 15.00 (6-20) Glucose 125 H (78-110) mg/dL Mean Blood Glucose mg/dL Hemoglobin A1c (4.2-6.0) % Calculated Osmolality 282.0 (267-292) mOsm/kg Lactic Acid (0.70-2.10) MMOL/L Calcium 7.8 L (8.7-10.7) mg/dL Magnesium 2.0 (1.6-2.4) mg/dL Iron (37-170) UG/DL TIBC (265-497) ug/dL % Saturation (14-50) % Ferritin (12.00-336.70) ng/mL Total Bilirubin 0.7 (0.3-1.2) mg/dL AST 53 H (8-39) IU/L ALT 44 (9-52) IU/L Alkaline Phosphatase 83 (38-126) IU/L C-Reactive Protein (0.0-0.9) mg/dL Total Protein 5.9 L (6.1-8.0) g/dL Albumin 2.9 L (3.5-4.8) g/dL Globulin 3.0 (2.50-4.10) g/dL Albumin/Globulin Ratio 0.90 L (1.3-2.0) mg/g Vitamin B12 (239-931) pg/mL Serum Folate (2.76-20.0) NG/ML TSH (0.2700-4.2000) uIU/mL Free T4 (0.93-1.71) ng/dL Ur Collection Type Urine Color (Y) Urine Clarity (CLEAR) Urine pH (5.0-8.5) Ur Specific [place] (1.005-1.030) Urine Protein (NEG) mg/dl Urine Glucose (UA) (NEG) mg/dL Urine Ketones (NEG) Urine Occult Blood (NEG) Urine Nitrate (NEG) Urine Bilirubin (NEG) Urine Urobilinogen (0.2) EU/dL Ur Leukocyte Esterase (NEG) Ur Culture Indicated? Blood Type Antibody Screen Crossmatch 03/16/17 Range/Units 04:15 WBC (4.8-10.8) 10^3/uL RBC (4.20-5.40) 10^6/uL Hgb (12.0-16.0) g/dL Hct (37.0-47.0) % MCV (81-99) FL MCH (27-31) PG MCHC (33-37) g/dL RDW Std Deviation (39-50) fL RDW Coeff of [place] (11.5-14.5) % Plt Count (140-350) 10*3/uL MPV (7.4-12.2) FL Immature Gran % (Auto) (0-5) % Neut % (Auto) (50-80) % Lymph % (Auto) (10-50) % [place] % (Auto) (5-15) % Eos % (Auto) (0-8) % Baso % (Auto) (0-1) % Immature Gran # (Auto) 10*3/UL Neut # (Auto) 10*3/UL Lymph # (Auto) 10*3/uL [place] # (Auto) (0.3-0.8) 10*3/UL Eos # (Auto) 10*3/UL Baso # (Auto) 10*3/UL WBC Morphology Comment (NORM) Plt Morphology Comment (NORM) RBC Morph Comment (NORM) VBG pH (7.32-7.42) VBG pCO2 (45-55) mmHg VBG HCO3 (22-26) mmol/L VBG Base Excess (-2-2) MMOL/L Sodium 137 (135-145) meq/L Potassium 4.7 (3.8-5.2) meq/L Chloride 104 (98-112) meq/L Carbon Dioxide 24 (23-33) meq/L Anion Gap 9 (5-20) BUN 8 (7-22) mg/dL Creatinine 0.4 L (0.50-1.20) mg/dL Estimated GFR [employer] BUN/Creatinine Ratio 20.00 (6-20) Glucose 131 H (78-110) mg/dL Mean Blood Glucose mg/dL Hemoglobin A1c (4.2-6.0) % Calculated Osmolality 283.0 (267-292) mOsm/kg Lactic Acid (0.70-2.10) MMOL/L Calcium 9.0 (8.7-10.7) mg/dL Magnesium (1.6-2.4) mg/dL Iron (37-170) UG/DL TIBC (265-497) ug/dL % Saturation (14-50) % Ferritin (12.00-336.70) ng/mL Total Bilirubin (0.3-1.2) mg/dL AST (8-39) IU/L ALT (9-52) IU/L Alkaline Phosphatase (38-126) IU/L C-Reactive Protein (0.0-0.9) mg/dL Total Protein (6.1-8.0) g/dL Albumin (3.5-4.8) g/dL Globulin (2.50-4.10) g/dL Albumin/Globulin Ratio (1.3-2.0) mg/g Vitamin B12 (239-931) pg/mL Serum Folate (2.76-20.0) NG/ML TSH (0.2700-4.2000) uIU/mL Free T4 (0.93-1.71) ng/dL Ur Collection Type Urine Color (Y) Urine Clarity (CLEAR) Urine pH (5.0-8.5) Ur Specific [place] (1.005-1.030) Urine Protein (NEG) mg/dl Urine Glucose (UA) (NEG) mg/dL Urine Ketones (NEG) Urine Occult Blood (NEG) Urine Nitrate (NEG) Urine Bilirubin (NEG) Urine Urobilinogen (0.2) EU/dL Ur Leukocyte Esterase (NEG) Ur Culture Indicated? Blood Type Antibody Screen [address] [facility] [place] [address] PH: [phone] FAX: [phone] ~DIAGNOSTIC IMAGING REPORT~ Patient: Elvia Quinones : 1940 Sex: F Age: 76 Exam Name: XR HIP COMPLETE MIN 2VW U/L Exam Date: 03/09/17 Report # : [id number] CPT Code: 76202 EMR/MR #: [id number] Ordering: ED YANG Admiting: ROSE MARIE SU MD. Primary: NONE,NONE Attending: ROSE MARIE SU MD. Signed AP PELVIS AND RIGHT HIP, 03/09/2017 4:44 PM: Clinical History: Status post right hemiarthroplasty. Right hip fracture. Previous Exam: 03/07/2017. An AP pelvis with AP and lateral views of the replaced hip are submitted. The patient is status post right hemiarthroplasty. The prosthetic joint articulates normally. A drain tube is in place. There may be a fecal impaction. Readin. Status post right hemiarthroplasty. The prosthetic joint articulates normally. 2. There may be a fecal impaction. Dictated By: 03/09/17 1733 WINNIE HENLEY MD. Signed By: 03/09/17 1805 WINNIE HENLEY MD. [address] [facility] [place] [address] PH: DD: [phone] FAX: [phone] ~DIAGNOSTIC IMAGING REPORT~ Patient: Elvia Quinones Augusto : 1940 Sex: F Age: 76 Exam Name: CT Lower Extremity WO Contrast Exam Date: 03/08/17 Report # : [id number] CPT Code: 13687 EMR/MR #: [id number] Ordering: ED YANG Admiting: ROSE MARIE SU MD. Primary: NONE,NONE Attending: ROSE MARIE SU MD. Signed CT HIP SCAN WITHOUT IV CONTRAST, 03/08/2017 9:19 AM : Clinical History: Right hip fracture. Measurement of the femoral head to calculate the prosthetic femoral head size. The patient is quite diminutive in size and the measurement is required in order to special order the correct size prosthesis. Previous Exam: None at this facility. Scans are performed from above the acetabulum to the proximal femurs without IV contrast. Sagittal and coronal images are generated. Scans through the lower pelvis show no masses or abnormal fluid collections. There is no adenopathy. The uterus is atrophic but normal. The patient is developing a fecal impaction. The left hip is normal and the measurement of the diameter of the femoral head in 2 planes is between 38-39 mm. The right hip fracture shows multiple small bone shards at the fracture site with erosive change of the lateral aspect of the femoral head secondary to the medial margin of the fractured femoral neck. There is sclerosis at the fracture margins indicating this is a subacute to chronic fracture. The presence of sclerosis would suggest a duration of at least several weeks has transpired since the initial fracture had occurred. This probably was a subcapital hip fracture. There is osteoporosis. READIN. The right hip fracture is subacute, probably several weeks old. The presence of osteoporosis and the hip fracture indicates this patient has severe osteoporosis. 2. The left hip is normal. Measurement of the left femoral head diameter these measurements between 38-39 mm. Dictated By: 03/09/17 0936 WINNIE HENLEY MD. Signed By: 03/09/17 1018 WINNIE HENLEY MD. DD: [phone] FAX: [phone] ~DIAGNOSTIC IMAGING REPORT~ Patient: Elvia Quinones : 1940 Sex: F Age: 76 Exam Name: CT Chest WO Contrast Exam Date: 03/08/17 Report # : [id number] CPT Code: 12093 EMR/MR #: [id number] Ordering: Rose Marie Su Admiting: ROSE MARIE SU MD. Primary: NONE,NONE Attending: ROSE MARIE SU MD. Signed CT CHEST SCAN WITHOUT IV CONTRAST, 03/08/2017 9:43 AM : Clinical History: Abnormal chest x-ray. Right hilar mass. Previous Exam: None at this facility. Comparison is made with the AP portable chest x-ray from 03/07/2017. Scans are performed from the base of the neck to the lower lung bases without IV contrast. Sagittal and coronal images using non MIPS and MIPS technique are generated. The base of the neck and thoracic inlet are normal. There are no abnormal axillary, supraclavicular, mediastinal, or hilar nodes. The heart is normal. Significant coronary artery calcifications are present. There is no acute infiltrate, but there is some atelectasis posteriorly. Chronic interstitial disease is present in both lungs manifested by Shawna A and Shawna B lines. There are no pulmonary nodules. There is pulmonary arterial hypertension. The "mass" seen in the right hilar region on the AP chest x-ray from 03/07/2017 is the right pulmonary artery segment going to the right lower lobe before it bifurcates into branches to the superior segment and the basal segments, and it is prominent because of the pulmonary arterial hypertension. Both adrenal glands and the visualized portions of the liver, spleen, and pancreas are normal. READIN. There is no acute infiltrate or effusion. There is evidence of chronic interstitial lung disease bilaterally. 2. There is no right hilar mass. The density seen on the portable chest x-ray from 03/07/2017 represents a prominent pulmonary artery segment going to the right lower lobe. On the chest x-ray, that vessel is viewed end on simulating a mass. 3. Pulmonary arterial hypertension. Dictated By: 03/08/17 1048 WINNIE HENLEY MD. Signed By: 03/08/17 1104 WINNIE HENLEY MD. Patient Problems - Patient Problem List (1) Hip fracture, right Current Visit: Yes Status: Acute Code(s): S72.001A - Fracture of unspecified part of neck of right femur, initial encounter for closed fracture Qualifiers: Encounter type: subsequent encounter Fracture type: closed Fracture healing: with routine healing Qualified Code(s): S72.001D - Fracture of unspecified part of neck of right femur, subsequent encounter for closed fracture with routine healing Category: Medical (2) Diabetes mellitus Current Visit: Yes Status: Acute Code(s): E11.9 - Type 2 diabetes mellitus without complications Qualifiers: Diabetes mellitus type: type 2 Diabetes mellitus complication status: without complication Diabetes mellitus 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 Qualified Code(s): E11.9 - Type 2 diabetes mellitus without complications Category: Medical (3) Alzheimer disease Current Visit: Yes Status: Chronic Code(s): G30.9 - Alzheimer's disease, unspecified Qualifiers: Alzheimer's disease onset: late-onset Dementia behavioral disturbance: without behavioral disturbance Qualified Code(s): G30.1 - Alzheimer's disease with late onset; F02.80 - Dementia in other diseases classified elsewhere without behavioral disturbance; F02.80 - Dementia in other diseases classified elsewhere without behavioral disturbance; F02.80 - Dementia in other diseases classified elsewhere without behavioral disturbance Category: Medical (4) Hypothyroidism Current Visit: Yes Status: Acute Code(s): E03.9 - Hypothyroidism, unspecified Qualifiers: Hypothyroidism type: acquired Qualified Code(s): E03.9 - Hypothyroidism, unspecified Category: Medical (5) Hypertension Current Visit: Yes Status: Acute Code(s): I10 - Essential (primary) hypertension Qualifiers: Hypertension type: essential hypertension Qualified Code(s): I10 - Essential (primary) hypertension Category: Medical (6) Hypokalemia Current Visit: Yes Status: Acute Code(s): E87.6 - Hypokalemia Category: Medical (7) Low iron Current Visit: Yes Status: Acute Code(s): E61.1 - Iron deficiency Category : Medical (8) Low vitamin B12 level Current Visit: Yes Status: Acute Code(s): E53.8 - Deficiency of other specified B group vitamins Category: Medical (9) Hypomagnesemia Current Visit: Yes Status: Acute Code(s): E83.42 - Hypomagnesemia Category : Medical
--- NOTE | 2017-03-17 11:07 | PT AM DAY ---
Diagnosis : Right Total Hip Arthroplasty AM - Physical Therapy S: The patient was unable to communicate with the therapist this morning. O: The patient performed therapeutic exercises including heel slides x10, ankle pumps, and red theraband resisted shoulder horizontal abduction. A: The patient appeared to be very tired and was unable to do much. The patient will be returning to the [facility]. P: Patient is being discharged to [facility]. LEED
== END 2017-03-16 13:23 | DRG 470 ==
LOC: ER 10:40 → MED/SURG 13:20 → OPS 03-08 07:04 → MED/SURG 03-08 09:08 → OPS 03-09 14:08 → MED/SURG 03-09 19:08
PROVIDERS: ADMIT Internal Medicine; ATTEND Internal Medicine